=== PATIENT | female | born 1950 | race Caucasian/White ===

== ENCOUNTER → 2024-03-11 | Outpatient (CLI) | payer OTHER ==
[2024-03-11 13:20] LABS: Basophils # (auto) 0.1 10 ^3/uL (0-0.2); Basophils % (auto) 0.8 % (0.0-2.0); Eosinophils # (auto) 0.1 10 ^3/uL (0-0.8); Eosinophils % (auto) 1.3 % (0.0-7.0); Hematocrit 42.5 % (36.0-46.0); Hemoglobin 14.5 g/dL (12.2-16.2); Lymphocytes % (auto) 27.5 % (10.0-50.0); Mean Corpuscular Hemoglobin 29.8 pg (28.0-32.0); Mean Corpuscular Hgb Conc. 34.2 g/dL (32.0-36.0); Mean Corpuscular Volume 87.4 fL (80.0-100.0); Monocytes # (auto) 0.8 10 ^3/uL (0-1.3); Monocytes % (auto) 7.2 % (0.0-12.0); Neutrophils # (auto) 6.9 10 ^3/uL (1.6-8.6); Neutrophils % (auto) 63.2 % (37.0-80.0); Nucleated Red Blood Cells % 0.1 %; Red Blood Cells 4.86 10^6/uL (4.0-5.20); Red Cell Distribution Width 14.6 % (11.8-14.3); White Blood Cell 10.9 10^3/uL (4.4-10.8)
[2024-03-11 14:09] LABS: Alanine Aminotransferase 14 U/L (7-40); Alkaline Phosphatase 65 U/L (46-116); Anion Gap 5 (5-15); Aspartate Aminotransferase 8 U/L (13-40); BUN/Creatinine Ratio 21.8 (10.0-20.0); Blood Urea Nitrogen 19 mg/dL (9-23); Calcium 9.5 mg/dL (8.7-10.4); Carbon Dioxide 28 mmol/L (20-30); Chloride 108 mmol/L (98-107); Glucose 146 mg/dL (74-106); LDL Cholesterol 65 mg/dL (< 100); Sodium 141 mmol/L (136-145); Triglycerides 105 mg/dL (< 150)
[2024-03-11 14:10] LABS: Albumin 4.4 g/dL (3.2-4.8); Bilirubin, Total 0.4 mg/dL (0.2-1.0); Cholesterol 117 mg/dL (< 200); HDL Cholesterol 36 mg/dL (40-59); Total Protein 6.6 g/dL (5.7-8.2)
[2024-03-11 14:31] LABS: Uric Acid 3.8 mg/dL (3.1-7.8)
[2024-03-11 14:55] LABS: Folate (Folic Acid) 10.58 ng/mL (>5.38)
== END | disposition home or self-care (01) ==
LOC: LAB 12:46
PROVIDERS: ATTEND Internal Medicine
DX: R73.09 Other abnormal glucose (principal); E61.2 Magnesium deficiency; R79.89 Other specified abnormal findings of blood chemistry
CPT/HCPCS: 36415; 80053; 80061; 82306; 82607; 82746; 83036; 84443; 84550; 85025

== ENCOUNTER 2024-12-12 14:06 | Inpatient (IN) | payer OTHER ==
[~2024-12-12] VITALS: Ht 160 cm; Wt 55.7 kg
[~2024-12-12 14:06] MED LIST: CEFP200T15 PO
--- NOTE | 2024-12-12 14:31 | ED.PDOC ---
Altered Mental Status HPI Comments 74 y.o female with PMHx of dementia, Alzheimer's, HTN, DM, and CVA, presents to the ED via EMS for an evaluation of altered mental status associated with generalized weakness. Per EMS, family on scene noted patient more altered than her normal baseline today around 1000am and reported no appetite the past 3 days with the weakness. Patient is a poor historian upon ED arrival, is able to state her name and where she is but nothing else. No family at bedside to gather more information at this time. Chief Complaint: ALOC Time Seen by MD: 14:25 Primary Care Provider: MESERET Reviewed Notes: Nurses Notes, Cork Wirer Notes, Medications, Allergies Allergies: Coded Allergies: Aspirin (Verified Allergy, Unknown, 01/28/23) Home Meds Active Scripts Cefpodoxime Proxetil (Cefpodoxime Proxetil) 200 Mg Tab, 1 TAB PO BID for 5 Days, #10 TAB Prov:JANELLE PISANO RESIDENT 11/17/24 Information Source: Emergency Med Personnel Mode of Arrival: EMS Severity: Unable to Care for Self Timing: Hours Duration: Since onset Quality: Decreased Alertness Associated Signs and Symptoms: Other Past Medical History PAST MEDICAL HISTORY: Alzheimer, CVA, Dementia, DM, HTN Surgical History: Denies all surgeries REC THERAPIST History: No Pertinent REC THERAPIST History Family History Family History: Reviewed,noncontributory to illness Social History Smoker: Non-Smoker Alcohol: Denies ETOH Use Drugs: Marijuana Lives In: Home Physical Exam General Appearance: Moderate Distress HEENT: Normal ENT Inspection, Pharynx Normal, TMs Normal Neck: Full Range of Motion, Non-Tender, Normal, Normal Inspection Respiratory: Chest Non-Tender, Lungs Clear, No Accessory Muscle Use, No Respiratory Distress, Normal Breath Sounds Cardiovascular: No Edema, No JVD, No Murmur, No Gallop, Normal Peripheral Pulses, Regular Rate/Rhythm Breast Exam: Deferred Gastrointestinal: No Organomegaly, Non Tender, No Pulsatile Mass, Normal Bowel Sounds, Soft Genitalia: Deferred Pelvic: Deferred Rectal: Deferred Extremities: No calf tenderness, No pedal edema Musculoskeletal : Apperance: Normal Neurologic: Alert, No Motor Deficits, No Sensory Deficits Cerebellar Function: NOT DONE Reflexes: NOT DONE Skin: Dry, Normal Color, Warm Peripheral Pulses: 3+ Radial (R), 3+ Radial (L) Lymphatic: No Adenopathy Was a procedure done? Was a procedure done?: No Differential Diagnosis (ALOC) Differential Diagnosis: Dehydration, Hypoxemia, Closed Head Injury, Heart Nico lure, Renal Failure X-Ray, Labs, Meds, VS Vital Signs Date Time Temp Pulse Resp B/P (MAP) Pulse Ox O2 Delivery O2 Flow Rate FiO2 12/12/24 16:11 98.3 66 66 103/53 (70) 93 98.3 12/12/24 16:11 66 16 93 Nasal Cannula* 2 28 12/12/24 15:51 98.2 58 22 81/39 (53) 91 98.2 12/12/24 14:13 69 12/12/24 14:06 98.3 65 21 113/50 (71) 92 98.3 Patient alert. Answering questions. CT of the head reviewed does show ischemia possibly old. Spoke with Radiology. Monitor with possible further imaging. Neurology consultation. She is mentating. Old stroke. Reviewed her previous visit. Waiting for family. Continue monitoring. Sign out to night physician. Continue to monitor with CT scan. Time of 1ST Reevaluation: 14:28 Reevaluation 1ST: Unchanged Patient Education/Counseling: Other (patient is altered ) Family Education/Counseling: No Family Present Departure 1 Departure Time of Disposition: 16:08 Impression: Primary Impression: CVA (cerebral vascular accident) Qualified Codes: I63.9 - Cerebral infarction, unspecified Disposition: 30 STILL A PATIENT Condition: Good Critical Care Note Critical Care Time?: Yes (90 min-critical care time only) Critical care comment: Continue to monitor Stability Stability form required: No I personally scribed for PAULA STILES MD ([email or web address]) on 12/12/24 at 14:31. Electronically submitted by Kiana Morales ([facility]). PAULA STILES MD Dec 12, 2024 14:31
--- NOTE | 2024-12-12 15:31 | DVH ---
CT HEAD WITHOUT CONTRAST INDICATION: altered : 74 old Female altered EXAM DATE: 12/12/2024 02:49 PM COMPARISON: None RADIATION DOSE: CTDIvol: 51 mGy, DLP: 1006 mGy*cm PROCEDURE: CT scans of the head were obtained from the vertex to the skull base. Sagittal and coronal reconstructions were provided. All CT scans at this medical facility are performed using dose modulation techniques as appropriate t o a performed exam including the following: Automated exposure control was utilized; adjustment of th e MA and/or KV according to patient size; and use of iterative reconstruction technique. FINDINGS: Right MCA distribution areas of encephalomalacia likely from infarct with serpinginous dens ities over the sulci, is probably hemosiderin staining however hemorrhagic transformation is a possib ility. There is sulcal and ventricular prominence. The brain otherwise shows normal morphology and g ray-white matter differentiation, without mass effect .The basal cisterns are patent. The skull and visible facial bones are intact. The paranasal sinuses, mastoid air cells and middle ear cavities are well-aerated. The soft tissues of the scalp are unremarkable. IMPRESSION: Right MCA distribution areas of encephalomalacia likely from infarct with serpinginous densities over the sulci, is probably hemosiderin staining however hemorrhagic transformation is a possibility. Critical Result: Infarct , questionable bleed Findings discussed with Dr. Bennett at 12/12/2024 03:28 PM and acknowledged receipt and understanding of the findings.
[2024-12-12 16:11] VITALS: PULSE 66; RESP 16; O2SAT 93
--- NOTE | 2024-12-12 17:35 | DVH ---
EXAM: CT HEAD WITHOUT CONTRAST INDICATION: fall, trauma, pain TECHNIQUE: CT of the head without intravenous contrast. Radiation Dose : 1. Head: CT Dose: CTDI volume is 52.29 mGy. Dose-length product is 926.08 mGy*cm The dose indicators for CT are the volume Computed Tomography (CT) Dose Index (CTDIvol) and the Dose Length Product (DLP), and are measured in units of mGy and mGy-cm, respectively. These indicators are not patient dose, but values generated from the CT scanner acquisition factors. The report includes radiation exposure data for exposures received during this examination. COMPARISON: CT HEAD WITHOUT CONTRAST on DOS: 12/12/24 FINDINGS: Redemonstration of encephalomalacia along the right MCA distribution with serpiginous cortical hyperd ensities likely representing gliosis or hemosiderin stain from chronic infarct. The ventricles, sulci and cisterns are age appropriate. The jenkins-white differentiation is intact. Patchy periventricular and subcortical white matter hypoattenuation is nonspecific but may be related to small vessel ischemic disease. The visualized paranasal sinuses and mastoid air cells are clear. The surrounding soft tissues and osseous structures are unremarkable. IMPRESSION: No acute intracranial abnormality. Findings are unchanged from CT dated 12/12/2024 at 2:49 p.m. Findings are therefore likely representa tive of chronic right MCA distribution infarct/ encephalomalacia with gliosis and/or chronic hemoside rin staining. Radiation optimization: All CT scans at this facility use at least one of these dose optimization christopher hniques: automated exposure control mA and/or kV adjustment per patient size (includes targeted exam s where dose is matched to clinical indication) or iterative reconstruction.
[2024-12-12 18:15] VITALS: PULSE 88; RESP 16; O2SAT 94
[2024-12-12 19:30] VITALS: PULSE 71; RESP 16; O2SAT 95
[2024-12-12 21:07] LABS: Basophils # (auto) 0.1 10 ^3/uL (0-0.2); Eosinophils # (auto) 0.1 10 ^3/uL (0-0.8)
[2024-12-12 21:09] LABS: Basophils % (auto) 0.6 % (0.0-2.0); Eosinophils % (auto) 0.9 % (0.0-7.0); Hematocrit 35.7 % (36.0-46.0); Hemoglobin 12.3 g/dL (12.2-16.2); Lymphocytes # (auto) 2.4 10 ^3/uL (0.4-5.4); Lymphocytes % (auto) 18.1 % (10.0-50.0); Mean Corpuscular Hgb Conc. 34.3 g/dL (32.0-36.0); Mean Corpuscular Volume 87.6 fL (80.0-100.0); Monocytes # (auto) 1.4 10 ^3/uL (0-1.3); Monocytes % (auto) 10.7 % (0.0-12.0); Neutrophils # (auto) 9.2 10 ^3/uL (1.6-8.6); Neutrophils % (auto) 69.7 % (37.0-80.0); Nucleated Red Blood Cells % 0.1 %; Platelet Count (auto) 538 10^3/uL (140-450); Red Blood Cells 4.08 10^6/uL (4.0-5.20); Red Cell Distribution Width 14.1 % (11.8-14.3); White Blood Cell 13.3 10^3/uL (4.4-10.8)
[2024-12-12 21:17] LABS: Chloride 103 mmol/L (98-107); Sodium 136 mmol/L (136-145)
[2024-12-12 21:18] LABS: Anion Gap 9 (5-15); Calcium 9.6 mg/dL (8.7-10.4); Carbon Dioxide 24 mmol/L (20-31)
[2024-12-12 21:23] LABS: BUN/Creatinine Ratio 31.7 (10.0-20.0)
[2024-12-12 21:24] LABS: Blood Urea Nitrogen 26 mg/dL (9-23); Glucose 133 mg/dL (74-106)
--- NOTE | 2024-12-12 21:39 | DVH ---
EXAM: XY CHEST PORTABLE TECHNIQUE: Single frontal chest radiograph CLINICAL HISTORY: ams COMPARISON: XY CHEST XRAY 1 VIEW on DOS: 11/15/24 Findings/Impression: Frontal chest radiograph demonstrates no acute osseous or superficial soft tissue abnormalities. The trachea is midline. The cardiac silhouette and mediastinum are within normal limits. Left basilar atelectasis versus developing infection. No pneumothorax or pleural effusions.
--- NOTE | 2024-12-13 01:34 | DVHHPRES ---
History of Present Illness Resident Creating Document: JOSÉ MANUEL KAUR RESIDENT History of Present Illness Patient is a 74-year-old female with past medical history of Alzheimer's dementia, diabetes, CAD s/p PCI in 2003, hypertension, CVA on 11/21/2024 who comes in due to increasing confusion. Patient is a poor historian and AO x1 at baseline. At the time of my assessment patient is AO x2. According to patient's family she has been having increasing confusion over the last few days along with decreasing oral intake headaches and polydipsia which is what prompted this visit to the hospital. On review of systems, patient denies everything, however, patient is a poor historian. CT head showed Right MCA distribution areas of encephalomalacia likely from infarct with serpinginous densities over the sulci, is probably hemosiderin staining however hemorrhagic transformation is a possibility. Repeat head CT showed redemonstration of encephalomalacia along right MCA with cortical hyperdensities concerning for gliosis versus hemosiderin staining from chronic infarct. CXR showed left basilar atelectasis versus developing infection. On physical exam patient had extensive bilateral wheezing along with decreased strength in the left upper and lower extremities. Past Medical History Alzheimer's dementia, diabetes, CAD s/p PCI in 2003, hypertension, CVA on 11/21/2024 Past Surgical History PCI, hysterectomy Past Social History Unable to obtain Review of Systems Review of Systems Unable to obtain accurate review of systems. Allergies: Coded Allergies: Aspirin (Verified Allergy, Unknown, 01/28/23) Exam Vital Signs Vital Signs Date Time Temp Pulse Resp B/P (MAP) Pulse Ox O2 Delivery O2 Flow Rate FiO2 12/12/24 19:30 98.1 71 16 117/47 (70) 95 98.1 12/12/24 19:30 Nasal Cannula* 2 28 General Appearance: Alert, Cooperative, mild distress (AO x2) HEENT: Atraumatic, PERRLA, Other (Dry mucous membranes) Respiratory: Other (Scattered bilateral wheezes) Cardiovascular: Regular rate, Normal S1, Normal S2 Abdominal: Normal bowel sounds, Soft, No tenderness Extremities: Normal pulses, No tenderness/swelling, Other Neuro: Normal speech, Other (Decreased strength in the left upper and lower extremities) Psych/Mental Status: Mood NL Labs/Xrays Labs Test 12/12/24 23:39 12/12/24 20:45 Range/Units Troponin I High Sensitivity 7 </=34 ng/L White Blood Count 13.3 H 4.4-10.8 10^3/uL Red Blood Count 4.08 4.0-5.20 10^6/uL Hemoglobin 12.3 12.2-16.2 g/dL Hematocrit 35.7 L 36.0-46.0 % Mean Corpuscular Volume 87.6 80.0-100.0 fL Mean Corpuscular Hemoglobin 30.0 28.0-32.0 pg Mean Corpuscular Hemoglobin Concent 34.3 32.0-36.0 g/dL Red Cell Distribution Width 14.1 11.8-14.3 % Platelet Count 538 H 140-450 10^3/uL Mean Platelet Volume 7.6 6.9-10.8 fL Neutrophils (%) (Auto) 69.7 37.0-80.0 % Lymphocytes (%) (Auto) 18.1 10.0-50.0 % Monocytes (%) (Auto) 10.7 0.0-12.0 % Eosinophils (%) (Auto) 0.9 0.0-7.0 % Basophils (%) (Auto) 0.6 0.0-2.0 % Neutrophils # (Auto) 9.2 H 1.6-8.6 10 ^3/uL Lymphocytes # (Auto) 2.4 0.4-5.4 10 ^3/uL Monocytes # (Auto) 1.4 H 0-1.3 10 ^3/uL Eosinophils # (Auto) 0.1 0-0.8 10 ^3/uL Basophils # (Auto) 0.1 0-0.2 10 ^3/uL Nucleated Red Blood Cells 0.1 % Sodium Level 136 136-145 mmol/L Potassium Level 4.0 3.5-5.1 mmol/L Chloride Level 103 98-107 mmol/L Carbon Dioxide Level 24 20-31 mmol/L Anion Gap 9 5-15 Blood Urea Nitrogen 26 H 9-23 mg/dL Creatinine 0.82 0.550-1.02 mg/dL Glomerular Filtration Rate Calc 76 >90 mL/min BUN/Creatinine Ratio 31.7 H 10.0-20.0 Serum Glucose 133 H 74-106 mg/dL Calcium Level 9.6 8.7-10.4 mg/dL Assessment/Plan Assessment/Plan Community-acquired pneumonia, Gram-positive versus Gram-negative Acute hypoxic respiratory failure due to above Sepsis due to above Acute metabolic encephalopathy due to above - IV ceftriaxone, IV azithromycin - sputum induction with sputum culture - serum lactic acid within normal limits - ordered blood culture - IV NS 500 cc once, ordered another bolus of IV NS 250 cc - ordered UA, urine culture Alzheimer's dementia, currently AO x2 - monitor Type 2 diabetes Hypertension CAD s/p PCI in 2003 History of CVA on 11/21/2024 - resumed home medication lisinopril 40 mg - sliding scale insulin mild - resumed home medication atorvastatin and clopidogrel - patient allergic to aspirin - pureed diet - swallow evaluation - ordered echocardiogram as patient noted to have crackles with no prior echocardiogram Left talus ulcer, POA Sacral erythema, POA - wound consult - dietary consult DVT prophylaxis: Levonox 40mg Goals of care: Full code, unable to reach patient's family Plan discussed with patient Plan discussed with Dr. Le Plan discussed with: Patient, Other (RN) Date of Service: Dec 13, 2024 Billing Provider: ALYSON LE MD Common Visit Codes: 44276-[id number] INP/OBS CARE (HIGH) Secondary Visit Codes: [id number] CARE PLAN 30 MINUTES JOSÉ MANUEL KAUR RESIDENT Dec 13, 2024 01:34 ALYSON LE MD Dec 13, 2024 21:16
[2024-12-13] MEDS: cefTRIAXone 1GM/50ML D5W 50 ML IV ONE (02:06)
[2024-12-13] MEDS: SODIUM CHLORIDE 0.9% 500 ML IV ONE (02:19)
[2024-12-13] MEDS: AZITHROMYCIN 500MG/ 250ML 250 ML IV ONE (02:51)
[2024-12-13] MEDS ORDERED: DEXTROSE (50%) 50ML SYRG IV PRN (04:45)
[2024-12-13] MEDS: CLOPIDOGREL BISULFATE 75 MG TAB PO SCH (05:33)
[2024-12-13] MEDS: LISINOPRIL 20 MG TAB PO SCH (05:34)
[2024-12-13 06:13] LABS: Urine Bacteria None Seen /hpf (None Seen)
[2024-12-13 06:31] LABS: Urine Blood Negative /uL (Negative); Urine Clarity Clear (Clear); Urine Color Yellow (Yellow); Urine Hyaline Cast FEW /lpf (0 - 2); Urine Protein, UAD TRACE (Negative); Urine Specific Gravity 1.029 (1.001-1.035); Urine Squamous Epithelial Cell None Seen /hpf (<5); Urine Urobilinogen 2 mg/dL (Negative); Urine WBC 1 /HPF (0-5); Urine pH 5.5 (5.0-9.0)
[2024-12-13] MEDS: InsuLIN REG 1unit/0.01ml Soln (100units/ml) SC SCH (06:34)
[2024-12-13] MEDS: ACCU-CHEK COMFORT CURVE STRIP VI SCH (06:34)
[2024-12-13 07:03] LABS: Anion Gap 10 (5-15); Calcium 9.5 mg/dL (8.7-10.4); Carbon Dioxide 24 mmol/L (20-31); Chloride 102 mmol/L (98-107); Potassium 3.8 mmol/L (3.5-5.1); Sodium 136 mmol/L (136-145)
[2024-12-13 07:09] LABS: BUN/Creatinine Ratio 34.3 (10.0-20.0)
[2024-12-13 07:10] LABS: Basophils # (auto) 0.1 10 ^3/uL (0-0.2); Basophils % (auto) 0.3 % (0.0-2.0); Eosinophils # (auto) 0.2 10 ^3/uL (0-0.8); Hemoglobin 12.1 g/dL (12.2-16.2); Lymphocytes # (auto) 1.9 10 ^3/uL (0.4-5.4); Lymphocytes % (auto) 12.1 % (10.0-50.0); Mean Corpuscular Hemoglobin 30.1 pg (28.0-32.0); Mean Corpuscular Hgb Conc. 33.7 g/dL (32.0-36.0); Mean Corpuscular Volume 89.3 fL (80.0-100.0); Monocytes # (auto) 1.6 10 ^3/uL (0-1.3); Monocytes % (auto) 10.1 % (0.0-12.0); Neutrophils % (auto) 76.5 % (37.0-80.0); Nucleated Red Blood Cells % 0.1 %; Platelet Count (auto) 566 10^3/uL (140-450); Red Blood Cells 4.03 10^6/uL (4.0-5.20); Red Cell Distribution Width 13.9 % (11.8-14.3); White Blood Cell 15.7 10^3/uL (4.4-10.8)
[2024-12-13 07:11] LABS: Blood Urea Nitrogen 23 mg/dL (9-23); Glucose 127 mg/dL (74-106)
--- NOTE | 2024-12-13 09:42 | DVHINCON2 ---
Date of service: Dec 13, [address] Bennett Reason for Consultation CVA History of Present Illness Ms. Sims is a 74 years old lady with a history of hypertension, diabetes, recent stroke with left-sided deficits, dementia, she was brought to the [facility] on 12/12/24 with a chief company of altered mental status with general weakness. At this time, she was awake, oriented to person only, but with reasonable social skills, and she is able to tell her nurse what she wants She has a history of dementia/Alzheimer disease, and the see her in my office, and she was on Aricept 10 mg daily, memantine 10 mg b.i.d., Remeron 45 mg at b edtime as needed, trazodone 150 mg to 200 mg at bedtime as needed She was recently discharged from the [facility] for acute stroke with resultant left hemiparesis Urinalysis, 12/13/2024: WBC: 1, urine leukocyte esterase: Negative WBC/HB/PLT/MCV, 12/13/2024: 15.7/12.1/566/89.3 BMP, 12/13/2024: Unremarkable TG/HDL/LDL/HDL, 07/2024: 190/200/139/44 VITAMIN B12, 10/2024: 1408 Chest x-ray, : Frontal chest radiograph demonstrates no acute osseous or superficial soft tissue abnormalities. The trachea is midline. The cardiac silhouette and mediastinum are within normal limits. Left basilar atelectasis versus developing infection. No pneumothorax or pleural effusions. CT head, 12/12/2024: No acute intracranial abnormality (right MCA encephalomalacia) Past Medical History Hypertension, diabetes, stroke, Alzheimer disease Past Surgical History C-sections, hysterectomy Family History: FH: brain cancer G8 FATHER Hypertension G8 MOTHER Ischemic heart disease G8 MOTHER Family History Migraine headache, HYPERTENSION, HEART DISEASE, anxiety Social History Smoker: Non-Smoker Alcohol: Denies ETOH Use Drugs: Marijuana Lives In: Home Allergies: Coded Allergies: Aspirin (Verified Allergy, Unknown, 01/28/23) Home Meds Active Scripts Cefpodoxime Proxetil (Cefpodoxime Proxetil) 200 Mg Tab, 1 TAB PO BID for 5 Days, #10 TAB Prov:JANELLE PISANO RESIDENT 11/17/24 Current Medications Current Medications Medications (Trade) Dose Ordered Sig/Tash Route PRN Reason Start Time Stop Time Status Last Admin Enoxaparin Sodium (Lovenox) 40 mg DAILY SC 12/13/24 10:00 Ceftriaxone Sodium 50 ml @ 100 mls/hr DAILY@09 IV 12/13/24 09:00 Azithromycin 250 ml @ 125 mls/hr DAILY IV 12/13/24 10:00 Lisinopril (Zestril Tablet) 40 mg DAILY PO 12/13/24 04:30 12/13/24 05:34 Atorvastatin Calcium (Lipitor) 40 mg HS PO 12/13/24 22:00 Clopidogrel Bisulfate (Plavix) 75 mg DAILY PO 12/13/24 04:45 12/13/24 05:33 Diagnostic Test (Pha) (Accu-Chek Comfort Curve T) 1 strip ACHS 12/13/24 07:00 12/13/24 06:34 Insulin Human Regular (InsuLIN R) ACHS SC 12/13/24 07:00 Dextrose 50 ml UD PRN IV Blood Sugar LESS THAN 60 12/13/24 04:45 Review of Systems As above, the other systems are negative Vital Signs Vital Signs Date Time Temp Pulse Resp B/P (MAP) Pulse Ox O2 Delivery O2 Flow Rate FiO2 12/13/24 08:00 80 12/13/24 06:00 20 156/71 (99) 100 12/12/24 19:30 98.1 98.1 12/12/24 19:30 Nasal Cannula* 2 28 Physical Exam GENERAL EXAM: General: the patient is well developed and nourished. No acute distress. HEENT: Normocephalic, neck is supple, no carotid bruits. No mass. RESPIRATORY: Normal respiratory effort with symmetrical lung expansion. Lungs clear to auscultation. CARDIOVASCULAR: Regular rate and rhythm with no murmurs. S1, S2. ABDOMEN: Soft, nontender, normal bowel sound NEUROLOGICAL: MENTAL STATUS: Awake and alert. Oriented to perso SPEECH, LANGUAGE, HIGHER CORTICAL FUNCTION: no aphasia or dysathria. CRANIAL NERVES: #2: Left homonymous hemianopsia. The optic discs were sharp. #3,4,6: Pupils are equal, round and reactive. EOMs full and conjugate. #5: Facial sensation intact in all three divisions bilaterally. Mandibular strength intact. #7: Facial muscles symmetrical and strength intact. #8: Hearing grossly normal to voice. #9,10: Uvula and soft palate rise in the midline. Swallow and voice are normal. #11: Trapezius and sternomastoid strength intact bilaterally. #12: Tongue midline. No fasciculations or atrophy. SENSATION: Sensation to touch and pinprick is fine MOTOR: Normal tone in the upper and lower extremity. Normal muscle bulk. No fasciculations. No abnormal movements or posturing. Muscle strength of the major groups in the right extremities is 5/5. Muscle strength of the major groups in the right extremities is: Upper: 0/5, lower: 3/5. REFLEXES: Deep tendon reflexes are symmetrical. No pathological reflexes. CEREBELLAR/COORDINATION: Deferred. GAIT/STATION: deferred. Labs/Diagnostic Data Labs Test 12/13/24 06:20 12/13/24 06:05 12/13/24 06:01 12/13/24 01:50 Range/Units White Blood Count 15.7 H 4.4-10.8 10^3/uL Red Blood Count 4.03 4.0-5.20 10^6/uL Hemoglobin 12.1 L 12.2-16.2 g/dL Hematocrit 36.0 36.0-46.0 % Mean Corpuscular Volume 89.3 80.0-100.0 fL Mean Corpuscular Hemoglobin 30.1 28.0-32.0 pg Mean Corpuscular Hemoglobin Concent 33.7 32.0-36.0 g/dL Red Cell Distribution Width 13.9 11.8-14.3 % Platelet Count 566 H 140-450 10^3/uL Mean Platelet Volume 7.6 6.9-10.8 fL Neutrophils (%) (Auto) 76.5 37.0-80.0 % Lymphocytes (%) (Auto) 12.1 10.0-50.0 % Monocytes (%) (Auto) 10.1 0.0-12.0 % Eosinophils (%) (Auto) 1.0 0.0-7.0 % Basophils (%) (Auto) 0.3 0.0-2.0 % Neutrophils # (Auto) 12.0 H 1.6-8.6 10 ^3/uL Lymphocytes # (Auto) 1.9 0.4-5.4 10 ^3/uL Monocytes # (Auto) 1.6 H 0-1.3 10 ^3/uL Eosinophils # (Auto) 0.2 0-0.8 10 ^3/uL Basophils # (Auto) 0.1 0-0.2 10 ^3/uL Nucleated Red Blood Cells 0.1 % Sodium Level 136 136-145 mmol/L Potassium Level 3.8 3.5-5.1 mmol/L Chloride Level 102 98-107 mmol/L Carbon Dioxide Level 24 20-31 mmol/L Anion Gap 10 5-15 Blood Urea Nitrogen 23 9-23 mg/dL Creatinine 0.67 0.550-1.02 mg/dL Glomerular Filtration Rate Calc 93 >90 mL/min BUN/Creatinine Ratio 34.3 H 10.0-20.0 Serum Glucose 127 H 74-106 mg/dL Calcium Level 9.5 8.7-10.4 mg/dL POC Glucose 126 H 70-106 mg/dl Urine Color Yellow Yellow Urine Clarity Clear Clear Urine pH 5.5 5.0-9.0 Urine Specific [place] 1.029 1.001-1.035 Urine Protein Trace H Negative Urine Ketones Trace Negative Urine Blood Negative Negative /uL Urine Nitrite Negative Negative Urine Bilirubin Negative Negative Urine Urobilinogen 2 H Negative mg/dL Urine Leukocyte Esterase Negative Negative /uL Urine RBC <1 0 - 4 /hpf Urine Microscopic WBC 1 0-5 /HPF Urine Squamous Epithelial Cells None seen <5 /hpf Urine Bacteria None seen None Seen /hpf Urine Hyaline Casts Few 0 - 2 /lpf Urine Glucose Normal Normal mg/dL Lactic Acid Level 0.9 0.4-2.0 mmol/L Test 12/12/24 23:39 Range/Units Troponin I High Sensitivity 7 </=34 ng/L Assessment Altered mental status/metabolic encephalopathy, likely recovered Rule out acute stroke Resident Stroke with left hemiparesis Dementia/Alzheimer disease Plan/Recommendation Monitoring Supportive treatment Telemetry Lipitor profile MRI head Plavix 75 mg daily Lipitor 40 mg daily Aricept 10 mg daily Memantine 10 mg b.i.d. More recommendation per clinical course Plan discussed with: Other DAVID CAMPBELL MD Dec 13, 2024 09:42
[2024-12-13] MEDS: ENOXAPARIN SOD 40 MG/0.4 ML SYRINGE SC SCH (10:53)
[2024-12-13] MEDS: amLODIPine BESYLATE 5 MG TAB PO SCH (10:53)
[2024-12-13] MEDS: cefTRIAXone 1GM/50ML D5W 50 ML IV SCH (10:53)
[2024-12-13] MEDS ORDERED: LORazepam 2MG/ML-1ML VIAL IV PRN (11:00)
[2024-12-13 11:46] LABS: Triglycerides 101 mg/dL (< 150)
[2024-12-13 11:47] LABS: LDL Cholesterol 52 mg/dL (< 100)
[2024-12-13 11:48] LABS: Cholesterol 105 mg/dL (< 200)
[2024-12-13 11:51] LABS: HDL Cholesterol 27 mg/dL (40-59)
--- NOTE | 2024-12-13 12:27 | ECG ---
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
[2024-12-13] MEDS: AZITHROMYCIN 500MG/ 250ML 250 ML IV SCH (12:34)
--- NOTE | 2024-12-13 13:18 | DVHSR ---
APPROVED REPORT EXAM: Two-dimensional and M-mode echocardiogram with Doppler and color Doppler. Blood Pressure: 156/71 mmHg INDICATION SOB RISK FACTORS Height: 58, Weight: 92 DIMENSIONS LVDd3.9 (3.8-5.7cm)LA (2D)3.7 (1.9-4.0cm)Aortic Root3.1 (2.0-3.7cm) LVDs2.8 (2.5-4.0cm)LA (MM) (1.9-4.0cm)Aortic Cusp Exc1.5 (1.5-2.0cm) EF (%) 56.0 (55-70%)Rt. Atrium3.5 (1.9-4.0cm)Asc. Aorta cm IVSd0.8 (0.7-1.1cm)RV (D) (1.8-2.4cm) PWd1.1 (0.7-1.1cm) Mitral Valve MitralMitral Stenosis E wave0.75m/sMV Mean GR.mmHg A wave0.92m/sMV Peak GR.61mmHg E/A ratio0.82D MVAcm2 DECEL [id number] 1/2 [id number] IVRTmsDop MVA4.78cm2 Aortic Valve Aortic ValveAortic Stenosis V11.53m/Brianne Mean GR.5mmHg V21.73m/Brianne Peak GR.12mmHg LVOT Diameter1.8 (1.8-2.4cm)Doppler AVA2.25cm2 Pulmonic Valve V21.06m/s Tricuspid Valve TR Velocity1.95m/s [id number] Other Information Technically limited study due to Conclusion lv and rv normal function lvef 55-60%, mild diastolic dysfunction
--- NOTE | 2024-12-13 13:52 | DVHPNRES ---
Progress Note Date Seen: Dec 13, 2024 Resident Creating Document: BRO ALLEN RESIDENT Medical Necessity Reason Pt with a Central, PICC or Fol: No Subjective Review of Systems Patient is a 74-year-old female with past medical history of Alzheimer's dementia, diabetes, CAD s/p PCI in 2003, hypertension, CVA on 11/21/2024 who comes in due to increasing confusion. Patient is a poor historian and AO x1 at baseline. At the time of my assessment patient is AO x2. According to patient's family she has been having increasing confusion over the last few days along with decreasing oral intake headaches and polydipsia which is what prompted this visit to the hospital. CT head showed Right MCA distribution areas of encephalomalacia likely from infarct with serpinginous densities over the sulci, is probably hemosiderin staining however hemorrhagic transformation is a possibility. Repeat head CT showed redemonstration of encephalomalacia along right MCA with cortical hyperdensities concerning for gliosis versus hemosiderin staining from chronic infarct. CXR showed left basilar atelectasis versus developing infection. On physical exam patient had extensive bilateral wheezing along with decreased strength in the left upper and lower extremities. Patient was seen and examined on the bedside. She is alert oriented x1. Review of system could not be assessed as patient is not fully alert and oriented Objective vital signs Vital Sign Date Time Temp Pulse Resp B/P (MAP) Pulse Ox O2 Delivery O2 Flow Rate FiO2 12/13/24 12:00 77 12/13/24 11:00 22 137/44 (75) 93 12/13/24 08:00 Nasal Cannula* 2 28 12/13/24 08:00 97.9 97.9 Total Intake and Output 12/12/24 12/12/24 12/13/24 15:00 23:00 07:00 Intake Total 800 ml Balance 800 ml medications Current Medications Medications Dose Ordered Sig/Tash Route Start Time Stop Time Status Last Admin Dose Admin Enoxaparin Sodium 40 mg DAILY SC 12/13/24 10:00 12/13/24 10:53 40 MG Ceftriaxone Sodium 50 ml @ 100 mls/hr DAILY@09 IV 12/13/24 09:00 12/13/24 10:53 100 MLS/HR Azithromycin 250 ml @ 125 mls/hr DAILY IV 12/13/24 10:00 12/13/24 12:34 125 MLS/HR Lisinopril 40 mg DAILY PO 12/13/24 04:30 12/13/24 05:34 40 MG Atorvastatin Calcium 40 mg HS PO 12/13/24 22:00 Clopidogrel Bisulfate 75 mg DAILY PO 12/13/24 04:45 12/13/24 10:00 75 MG Diagnostic Test (Pha) 1 strip ACHS 12/13/24 07:00 12/13/24 11:30 1 STRIP Insulin Human Regular ACHS SC 12/13/24 07:00 12/13/24 11:18 3 UNITS Dextrose 50 ml UD PRN IV 12/13/24 04:45 Amlodipine Besylate 10 mg DAILY PO 12/13/24 10:00 Lorazepam 1 mg ONCE PRN IV 12/13/24 11:00 Examination Physical examination: General Appearance: Alert, Oriented X1, Cooperative, No acute distress HEENT: Atraumatic, PERRLA, EOMI, Mucous membrane moist/pink Respiratory: Bilateral Wheezing and crackles on the left side Cardiovascular: Regular rate, Normal S1, Normal S2, No murmurs, no chest wall tenderness Abdominal: Normal bowel sounds, Soft, No tenderness, No hepatospenomegaly, No masses Extremities: No clubbing, No cyanosis, No edema, Normal pulses, No tenderness/swelling Skin: No rashes, No breakdown, No significant lesion Neuro: Lt sided residual weakness, Normal speech, Strength at 5/5 X2 ext, Normal tone, Sensation intact, grossy intact cranial nerves. Psych/Mental Status: Could not be assessed as patient has end-stage Alzheimer's dementia. laboratory and microbiology Laboratory Tests 12/13/24 06:20 Test 12/13/24 06:20 Range/Units Serum Glucose 127 H 74-106 mg/dL Labs and/or images reviewed: Labs reviewed by me, Image(s) reviewed by me Problem List/Assessment/Plan Problem List/Assessment/Plan Assessment and plan: # Community-acquired pneumonia, Gram-positive versus Gram-negative # Acute hypoxic respiratory failure due to above # Sepsis due to above - CxR demonstrated left basilar atelectasis versus developing infection - Ordered blood culture and sputum culture - IV ceftriaxone 1 g daily and IV azithromycin 500 mg daily # Acute metabolic encephalopathy, rule out stroke # 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 - Ordered MRI - Neurology on board - Lisinopril 40 mg daily and amlodipine 10 mg daily - Plavix 75 mg daily and atorvastatin 40 mg at HS - Memantine 5 mg b.i.d. and Aricept 10 mg at HS - Echo on 12/13/24 showed 55-60% with mild diastolic dysfunction # Type 2 diabetes mellitus, hemoglobin A1c 7.7 on 11/16/2024 - Mild sliding scale of insulin # DVT prophylaxis - Lovenox 40 mg sc daily Goal of care could not be discussed as patient is not fully alert and oriented but spoke with the daughter over phone for more than 16 minutes full code Plan discussed with Dr. Le Plan discussed with: Patient, Other My Orders My Orders Orders - BRO ALLEN Procedure Category Date Status Time Amlodipine Tablet PHA 12/13/24 In Process (Norvasc Tablet) 10:00 Date of Service: Dec 13, 2024 Billing Provider: ALYSON LE MD Common Visit Codes: [id number] INP/OBS CARE(HIGH) BRO ALLEN Dec 13, 2024 13:52 ALYSON LE MD Dec 13, 2024 21:50
[2024-12-13] MEDS ORDERED: amLODIPine BESYLATE 5 MG TAB PO ONE (14:30)
--- NOTE | 2024-12-13 16:21 | DVH ---
EXAM: MRI BRAIN HEAD WO CONTRAST; DATE: 12/13/2024 03:16 PM HISTORY: xva COMPARISON: Prior CT scans without IV contrast dated 12/12/2024 TECHNIQUE: MRI was performed utilizing multiple appropriate imaging planes and pulse sequences. FINDINGS: SUPRATENTORIAL REGION: Large right MCA territorial infarct restricted diffusion noted. There is sulca l effacement no mass effect on right lateral ventricle. There is no midline shift. Evaluation is ve ry limited due to motion degradation. POSTERIOR FOSSA: No acute abnormality. BRAINSTEM: Unremarkable. SELLAR/SUPRASELLAR REGION: Unremarkable. VENTRICLES, CISTERNS, SULCI: Age-appropriate. ORBITS: Unremarkable. PARANASAL SINUSES: Unremarkable. MASTOID AIR CELLS: Small bilateral mastoid effusions. VASCULATURE: Unremarkable. BONES/ SOFT TISSUES: Unremarkable. OTHER: None. IMPRESSION: 1. Large acute right MCA territorial infarct. There is sulcal effacement but no mass effect on the ri ght lateral ventricle and no midline shift noted. Evaluation is very limited due to motion degradati on. Sulcal calcification / hemosiderin deposit is poorly evaluated due to motion degradation and limi oh sequences in this fast MRI. 2. Small bilateral mastoid effusions. We are in the process of notifying the house staff .
[2024-12-13 20:00] VITALS: PULSE 86; RESP 27; O2SAT 93
[2024-12-13] MEDS: SODIUM CHLORIDE 0.9% 250 ML IV ONE (22:00)
[2024-12-13] MEDS ORDERED: ATORVASTATIN 20 MG TAB PO SCH (22:00)
[2024-12-13] MEDS: MEMANTINE HCL 5 MG TAB PO SCH (22:04)
[2024-12-13] MEDS: ATORVASTATIN 20 MG TAB PO SCH (22:05)
[2024-12-13] MEDS: DONEPEZIL HYDROCHLORIDE 5 MG TAB PO SCH (22:05)
[2024-12-14] VITALS (7 sets, daily range): BP systolic 137–145; BP diastolic 52–58; PULSE 75–88; RESP 14–26; TEMP 98.8–99.5; O2SAT 92–98
[2024-12-14 06:10] LABS: Basophils # (auto) 0.1 10 ^3/uL (0-0.2); Basophils % (auto) 0.6 % (0.0-2.0); Eosinophils # (auto) 0.3 10 ^3/uL (0-0.8); Monocytes % (auto) 10.3 % (0.0-12.0)
[2024-12-14 06:13] LABS: Eosinophils % (auto) 2.4 % (0.0-7.0); Hematocrit 38.2 % (36.0-46.0); Hemoglobin 12.9 g/dL (12.2-16.2); Lymphocytes # (auto) 1.7 10 ^3/uL (0.4-5.4); Lymphocytes % (auto) 14.1 % (10.0-50.0); Mean Corpuscular Hemoglobin 29.7 pg (28.0-32.0); Mean Corpuscular Hgb Conc. 33.6 g/dL (32.0-36.0); Mean Corpuscular Volume 88.3 fL (80.0-100.0); Monocytes # (auto) 1.2 10 ^3/uL (0-1.3); Neutrophils # (auto) 8.8 10 ^3/uL (1.6-8.6); Neutrophils % (auto) 72.6 % (37.0-80.0); Platelet Count (auto) 579 10^3/uL (140-450); Red Blood Cells 4.33 10^6/uL (4.0-5.20); Red Cell Distribution Width 13.8 % (11.8-14.3); White Blood Cell 12.1 10^3/uL (4.4-10.8)
[2024-12-14 06:34] LABS: Anion Gap 11 (5-15); BUN/Creatinine Ratio 21.5 (10.0-20.0); Blood Urea Nitrogen 14 mg/dL (9-23); Calcium 9.3 mg/dL (8.7-10.4); Carbon Dioxide 24 mmol/L (20-31); Chloride 102 mmol/L (98-107); Potassium 3.7 mmol/L (3.5-5.1); Sodium 137 mmol/L (136-145)
[2024-12-14 06:35] LABS: Albumin 3.9 g/dL (3.2-4.8); Total Protein 6.6 g/dL (5.7-8.2)
[2024-12-14 06:36] LABS: Bilirubin, Total 0.5 mg/dL (0.2-1.0)
[2024-12-14 06:43] LABS: Alanine Aminotransferase 142 U/L (7-40); Alkaline Phosphatase 118 U/L (46-116); Aspartate Aminotransferase 169 U/L (13-40); Glucose 171 mg/dL (74-106)
[2024-12-14] MEDS ORDERED: ALBUTEROL SULF 2.5 MG/0.5ML(0.5%) NEB SOLN NEB PRN (07:00)
[2024-12-14] MEDS ORDERED: IPRATROPIUM BROM 0.5 MG/2.5ML INH SOL NEB PRN (07:00)
[2024-12-14 08:37] LABS: INR 1.17 (0.9-1.15); Prothrombin Time 12.2 sec (9.3-11.8)
--- NOTE | 2024-12-14 09:01 | DVH ---
INDICATION: Hepatic steatosis TECHNIQUE: Multiple real-time sonographic images were obtained of the right upper quadrant. COMPARISON: None FINDINGS: The liver demonstrates homogeneous echotexture without focal mass lesions. The liver measu res 14.5 cm. There is no intrahepatic or extrahepatic ductal dilatation. The common duct measures 1.3 cm. Post cholecystectomy The right kidney measures 10.2 cm. The right kidney is normal in contour, size, and shape. The echoge nicity is normal. There is no hydronephrosis. The pancreas is not well visualized due to overlying bowel gas. IMPRESSION: Post cholecystectomy. No acute findings.
--- NOTE | 2024-12-14 09:33 | DVHPN2 ---
Progress Note - Dictate Date Seen: Dec 14, 2024 Medical Necessity Reason Pt with a Central, PICC or Fol: No Subjective Ms. Sims is a 74 years old lady with a history of hypertension, diabetes, recent stroke with left-sided deficits, dementia, she was brought to the [facility] on 12/12/24 with a chief company of altered mental status with general weakness. I have seen and examined the patient, I have discussed with her nurse and the medical staff, the patient was doing fine, she is oriented to person at this time but was oriented to person place earlier this morning I have talked to her daughter, she was relates the patient was 1st sent to the [facility], after "stroke shot", she was transferred to the [facility], and she was discharged home on 12/06/2024 without oxygen. Before she came to the hospital, the patient was was nonresponsive to her and she looked pale at if "she was dying". Daughter noticed improvement once EMS personnel put oxygen on her I have noticed the oxygen down to low 90s in the hospital I have discussed with Dr. Parekh. The patient is going home with home oxygen Urinalysis, 12/13/2024: WBC: 1, urine leukocyte esterase: Negative WBC/HB/PLT/MCV, 12/13/2024: 15.7/12.1/566/89.3 BMP, 12/13/2024: Unremarkable TG/HDL/LDL/HDL, 07/2024: 190/200/139/44 VITAMIN B12, 10/2024: 1408 Chest x-ray, : Frontal chest radiograph demonstrates no acute osseous or superficial soft tissue abnormalities. The trachea is midline. The cardiac silhouette and mediastinum are within normal limits. Left basilar atelectasis versus developing infection. No pneumothorax or pleural effusions. CT head, 12/12/2024: No acute intracranial abnormality (right MCA encephalomalacia) MRI head, 12/13/2024: 1. Large acute right MCA territorial infarct. There is sulcal effacement but no mass effect on the right lateral ventricle and no midline shift noted. Evaluation is very limited due to motion degradation. Sulcal calcification / hemosiderin deposit is poorly evaluated due to motion degradation and limited sequences in this fast MRI. 2. Small bilateral mastoid effusions. (I have reviewed the films, and compared to her CT brain, I think this is the same stroke she sustained recently before she went to the [facility]) vital signs Vital Sign Date Time Temp Pulse Resp B/P (MAP) Pulse Ox O2 Delivery O2 Flow Rate FiO2 12/14/24 08:27 94 Nasal Cannula* 4 36 12/14/24 08:00 74 12/14/24 07:19 99.5 26 145/58 99.5 Total Intake and Output 12/13/24 12/13/24 12/14/24 15:00 23:00 07:00 Intake Total 300 ml Output Total 800 ml Balance 300 ml -800 ml medications Current Medications Medications Dose Ordered Sig/Tash Route Start Time Stop Time Status Last Admin Dose Admin Ceftriaxone Sodium 50 ml @ 100 mls/hr DAILY@09 IV 12/13/24 09:00 12/14/24 08:55 100 MLS/HR Azithromycin 250 ml @ 125 mls/hr DAILY IV 12/13/24 10:00 12/13/24 12:34 125 MLS/HR Lisinopril 40 mg DAILY PO 12/13/24 04:30 12/13/24 13:57 40 MG Atorvastatin Calcium 40 mg HS PO 12/13/24 22:00 12/13/24 22:05 40 MG Clopidogrel Bisulfate 75 mg DAILY PO 12/13/24 04:45 12/13/24 10:00 75 MG Diagnostic Test (Pha) 1 strip ACHS 12/13/24 07:00 12/14/24 06:38 1 STRIP Insulin Human Regular ACHS SC 12/13/24 07:00 12/14/24 06:43 4 UNITS Dextrose 50 ml UD PRN IV 12/13/24 04:45 Amlodipine Besylate 10 mg DAILY PO 12/13/24 10:00 12/13/24 13:57 10 MG Lorazepam 1 mg ONCE PRN IV 12/13/24 11:00 Donepezil HCl 10 mg HS PO 12/13/24 22:00 12/13/24 22:05 10 MG Memantine 5 mg Q12HR PO 12/13/24 22:00 12/13/24 22:04 5 MG Albuterol 2.5 mg Q6HPRN PRN NEB 12/14/24 07:00 Ipratropium [place] 0.5 mg Q6HPRN PRN NEB 12/14/24 07:00 Insulin Glargine 10 units HS SC 12/14/24 22:00 objective General: the patient is well developed and nourished. No acute distress. MENTAL STATUS: Subjective SPEECH, LANGUAGE, HIGHER CORTICAL FUNCTION: no aphasia or dysathria. CRANIAL NERVES: Left homonymous hemianopsia. Pupils are equal, round and reactive. EOMs full and conjugate. Facial sensation intact in all three divisions bilaterally. Mandibular strength intact. Questionable right facial weakness SENSATION: Sensation to touch and pinprick is fine MOTOR: Increased muscle tone in the left arm. Normal muscle bulk. No fasciculations. No abnormal movements or posturing. Muscle strength of the major groups in the right extremities is 5/5. Muscle strength of the major groups in the right extremities is: Upper: 0/5, lower: 3/5. REFLEXES: Deep tendon reflexes are symmetrical. No pathological reflexes. CEREBELLAR/COORDINATION: Deferred. GAIT/STATION: deferred. laboratory and microbiology Laboratory Tests 12/14/24 05:55 Test 12/14/24 05:55 Range/Units Serum Glucose 171 H 74-106 mg/dL Problem List Altered mental status/metabolic encephalopathy, likely recovered Rule out acute stroke Resident Stroke with left hemiparesis Dementia/Alzheimer disease Left upper extremity spasticity Assessment/Plan Monitoring Supportive treatment Telemetry Lipitor profile Plavix 75 mg daily Lipitor 40 mg daily Aricept 10 mg daily Memantine 10 mg b.i.d. More recommendation per clinical course This medical document was created using an electronic medical record system with [employer] dictation system. Although this document has been carefully reviewed, there may still be some phonetic and typographical errors. These areas are purely typographical due to imperfections of the software programs, and do not reflect any compromise in the patient's medical care. Prognosis poor Plan discussed with: Daughter, Other Total Time (mins): 45 DAVID CAMPBELL MD Dec 14, 2024 09:33
[2024-12-14] MEDS ORDERED: amLODIPine BESYLATE 5 MG TAB PO SCH (10:00)
[2024-12-14 10:43] LABS: Base Excess 2.4 mmol/L (-2.0-3.0)
[2024-12-14 10:48] LABS: Hepatitis B Core Total AB Negative (Negative)
[2024-12-14 11:43] LABS: Hepatitis A Total Antibody Positive (Negative)
[2024-12-14 11:44] LABS: Hepatitis B Surface Antibody Negative (Negative); Hepatitis B Surface Antigen Negative (Negative); Hepatitis C Antibody Negative (Negative)
--- NOTE | 2024-12-14 13:09 | DVHINCON2 ---
GI Consult Consult Note GI consult note Date of Consultation: 12/14/2024 Chief Complaint: Peg tube placement Referring Physician: Dr.. Cunningham H&P: 74-year-old female presented to ER with increased confusion. Patient has past medical history of Alzheimer's dementia, diabetes, CAD, hypertension, CVA on 11/21/2024. Also reported to have some difficulty swallowing. Patient is a poor historian. history from chart ,RN and telephone conversation with daughter Pat at [phone] No complains of abdominal pain. No nausea or vomiting, no history of dysphagia. No history of liver problems in the past. Per daughter no history of alcohol use. Patient has a history of long-term use of marijuana Past Medical History: Alzheimer's dementia, diabetes, CAD s/p PCI in 2003, hypertension, CVA on 11/21/2024 Past Surgical History: PCI, hysterectomy Social History: NO smoking, drinking ETOH History of marijuana use Family History: Noncontributory Review of Systems: As above Physical exam: General: Patient is awake in no apparent distress Chest: lung amador clear to auscultation Heart: RRR, no murmur Abdomen: non-distended, no tenderness to palpation, +BS Labs: Test 12/14/24 05:55 Range/Units Serum Glucose 171 H 74-106 mg/dL Imaging: Abdominal ultrasound IMPRESSION: Post cholecystectomy. No acute findings. Assessment: Dysphagia History CVA Sepsis Pneumonia Elevated LFTs Hepatitis A positive Plan: Discussed with Dr. Pandey Monitor LFTs. SOPHIE. Ferritin. Hepatitis a IgM Patient is able to tolerate pureed diet, recommend thickened with nectar No plan for PEG tube at this time Hold hepatotoxic medications We will continue to follow patient Discussed plan with patient and RN and daughter Pat by telephone conversation Thank you for this consult Date of Service: Dec 14, 2024 Billing Provider: ESTELLA COYLE Common Visit Codes: CONSULT ONLY Consultation Codes: [id number] CONSULT <60MIN ESTELLA COYLE Dec 14, 2024 13:09
[2024-12-14 14:35] LABS: Base Excess 3.3 mmol/L (-2.0-3.0)
[2024-12-14] MEDS ORDERED: AML5T PO (16:03)
[2024-12-14] MEDS ORDERED: MEMA1TAB3 PO (16:03)
[2024-12-14] MEDS ORDERED: ATOR20TA50 PO (16:03)
[2024-12-14] MEDS ORDERED: LISI20TA56 PO (16:03)
[2024-12-14] MEDS ORDERED: DONE5TAB80 PO (16:03)
[2024-12-14] MEDS ORDERED: CLOP75TA28 PO (16:03)
[2024-12-14] MEDS ORDERED: DONE1TAB88 PO (16:03)
[2024-12-14] MEDS ORDERED: CLOP75TA70 PO (16:03)
[2024-12-14] MEDS ORDERED: LISI40TA16 PO (16:03)
[2024-12-14] MEDS ORDERED: AMLO1TAB23 PO (16:03)
[2024-12-14] MEDS ORDERED: LEVO750T40 PO (16:03)
--- NOTE | 2024-12-14 19:29 | DVHDSRES ---
Discharge Summary Date of Admission Resident Creating Document: BRO ALLEN RESIDENT Dec 13, 2024 at 01:24 Date of Discharge: Dec 15, 2024 Admitting Diagnosis Community acquired pneumonia gram positive/ gram negative Wounds: No wound was present. Labs/Diagnostic Data: Laboratory Results Test 12/14/24 17:07 12/14/24 14:23 12/14/24 14:13 12/14/24 05:55 POC Glucose 202 mg/dl (70-106) Blood Gas Specimen Type Arterial Blood Gas Sample Site Right radial Blood Gas Patient Temperature 37.0 Arterial Blood Date Drawn [id number] Arterial Blood pH 7.521 (7.350-7.450) Arterial Blood Partial Pressure CO2 32.0 mmHg (32.0-45.0) Arterial Blood Partial Pressure O2 54.1 mmHg (83.0-108.0) Arterial Blood HCO3 25.6 mmol/L (21.0-28.0) Arterial Blood Oxygen Saturation 89.4 % (94.0-98.0) Arterial Blood Base Excess 3.3 mmol/L (-2.0-3.0) Arterial Blood Oxyhemoglobin 88.4 % (94.0-98.0) Arterial Blood Carboxyhemoglobin 0.3 % (0.5-1.5) Arterial Blood Methemoglobin 0.8 % (0.0-1.5) Supa Test Yes Blood Gas Total Hemoglobin 13.30 g/dL (12.0-16.0) Blood Gas Modality Room air Blood Gas Spontaneous Rate 22 FiO2 % 21.0 Blood Gas Critical Value Read Back Yes Blood Gas Notified Whom Md. cristina gordon Blood Gas Notified Time [id number] Blood Gas Notified By Rt moe olson White Blood Count 12.1 10^3/uL (4.4-10.8) Red Blood Count 4.33 10^6/uL (4.0-5.20) Hemoglobin 12.9 g/dL (12.2-16.2) Hematocrit 38.2 % (36.0-46.0) Mean Corpuscular Volume 88.3 fL (80.0-100.0) Mean Corpuscular Hemoglobin 29.7 pg (28.0-32.0) Mean Corpuscular Hemoglobin Concent 33.6 g/dL (32.0-36.0) Red Cell Distribution Width 13.8 % (11.8-14.3) Platelet Count 579 10^3/uL (140-450) Mean Platelet Volume 7.5 fL (6.9-10.8) Neutrophils (%) (Auto) 72.6 % (37.0-80.0) Lymphocytes (%) (Auto) 14.1 % (10.0-50.0) Monocytes (%) (Auto) 10.3 % (0.0-12.0) Eosinophils (%) (Auto) 2.4 % (0.0-7.0) Basophils (%) (Auto) 0.6 % (0.0-2.0) Neutrophils # (Auto) 8.8 10 ^3/uL (1.6-8.6) Lymphocytes # (Auto) 1.7 10 ^3/uL (0.4-5.4) Monocytes # (Auto) 1.2 10 ^3/uL (0-1.3) Eosinophils # (Auto) 0.3 10 ^3/uL (0-0.8) Basophils # (Auto) 0.1 10 ^3/uL (0-0.2) Nucleated Red Blood Cells 0.0 % Prothrombin Time 12.2 sec (9.3-11.8) Prothrombin Time INR 1.17 (0.9-1.15) Activated Partial Thromboplast Time 26.0 SEC (24.5-34.5) Sodium Level 137 mmol/L (136-145) Potassium Level 3.7 mmol/L (3.5-5.1) Chloride Level 102 mmol/L (98-107) Carbon Dioxide Level 24 mmol/L (20-31) Anion Gap 11 (5-15) Blood Urea Nitrogen 14 mg/dL (9-23) Creatinine 0.65 mg/dL (0.550-1.02) Glomerular Filtration Rate Calc 93 mL/min (>90) BUN/Creatinine Ratio 21.5 (10.0-20.0) Serum Glucose 171 mg/dL (74-106) Calcium Level 9.3 mg/dL (8.7-10.4) Ferritin 163.2 ng/mL (10-291) Total Bilirubin 0.5 mg/dL (0.2-1.0) Aspartate Amino Transferase (AST) 169 U/L (13-40) Alanine Aminotransferase (ALT) 142 U/L (7-40) Alkaline Phosphatase 118 U/L (46-116) Total Protein 6.6 g/dL (5.7-8.2) Albumin 3.9 g/dL (3.2-4.8) Hepatitis A IgM Antibody Negative Hepatitis A Antibody Total Positive (Negative) Hepatitis B Surface Antigen Negative (Negative) Hepatitis B Surface Antibody Negative (Negative) Hepatitis B Core Total Antibody Negative (Negative) Hepatitis C Antibody Negative (Negative) Test 12/13/24 06:20 12/13/24 06:01 12/13/24 01:50 12/12/24 23:39 Triglycerides Level 101 mg/dL (< 150) Cholesterol Level 105 mg/dL (< 200) LDL Cholesterol 52 mg/dL (< 100) HDL Cholesterol 27 mg/dL (40-59) Urine Color Yellow (Yellow) Urine Clarity Clear (Clear) Urine pH 5.5 (5.0-9.0) Urine Specific [place] 1.029 (1.001-1.035) Urine Protein Trace (Negative) Urine Ketones Trace (Negative) Urine Blood Negative /uL (Negative) Urine Nitrite Negative (Negative) Urine Bilirubin Negative (Negative) Urine Urobilinogen 2 mg/dL (Negative) Urine Leukocyte Esterase Negative /uL (Negative) Urine RBC <1 /hpf (0 - 4) Urine Microscopic WBC 1 /HPF (0-5) Urine Squamous Epithelial Cells None seen /hpf (<5) Urine Bacteria None seen /hpf (None Seen) Urine Hyaline Casts Few /lpf (0 - 2) Urine Glucose Normal mg/dL (Normal) Lactic Acid Level 0.9 mmol/L (0.4-2.0) Troponin I High Sensitivity 7 ng/L (</=34) Other Laboratory Tests 12/14/24 05:55 Brief Hx & Hospital Course: Patient is a 74-year-old female with past medical history of Alzheimer's dementia, diabetes, CAD s/p PCI in 2003, hypertension, CVA on 11/21/2024 who comes in due to increasing confusion. Patient is a poor historian and AO x1 at baseline. At the time of my assessment patient is AO x2. According to patient's family she has been having increasing confusion over the last few days along with decreasing oral intake headaches and polydipsia which is what prompted this visit to the hospital. CT head showed Right MCA distribution areas of encephalomalacia likely from infarct with serpinginous densities over the sulci, is probably hemosiderin staining however hemorrhagic transformation is a possibility. Repeat head CT showed redemonstration of encephalomalacia along right MCA with cortical hyperdensities concerning for gliosis versus hemosiderin staining from chronic infarct. CXR showed left basilar atelectasis versus developing infection. On physical exam patient had extensive bilateral wheezing along with decreased strength in the left upper and lower extremities. Hospital course: Patient was initially presented with metabolic encephalopathy and reduced p.o. intake. CT scan revealed old infarct in right MCA with cortical hyperdensity concerning for gliosis versus hemosiderin staining from chronic infarct and MRI revealed large acute right MCA territory infarct. Patient has a history of end-stage Alzheimer dementia and alert and oriented x1 which is her baseline and swallow evaluation done and recommended pureed diet. GI was consulted for possible PEG tube placement as per family request and GI mentioned the patient is able to tolerate pureed diet, recommended thickened with nectar and no plan for PEG tube at this time. For possible pneumonia patient was treated with IV ceftriaxone 1 g daily and IV azithromycin 500 mg daily. Neurology was on board and cleared the patient for discharge. ABG on room air showed Po2<55 and social director was consulted to arrange home oxygen and also home health for PT. Discharge plan was discussed with the daughter and all questions were answered. Patient is being discharged to home with levofloxacin 750 mg daily for 7 days, continue home medications except statin and follow up with PCP and check CMP in 7 days. Physical examination: General Appearance: Alert, Oriented X1, Cooperative, No acute distress HEENT: Atraumatic, PERRLA, EOMI, Mucous membrane moist/pink Respiratory: Bilateral Wheezing and crackles on the left side Cardiovascular: Regular rate, Normal S1, Normal S2, No murmurs, no chest wall tenderness Abdominal: Normal bowel sounds, Soft, No tenderness, No hepatospenomegaly, No masses Extremities: No clubbing, No cyanosis, No edema, Normal pulses, No tenderness/swelling Skin: No rashes, No breakdown, No significant lesion Neuro: Lt sided residual weakness, Normal speech, Strength at 5/5 X2 ext, Normal tone, Sensation intact, grossy intact cranial nerves. Psych/Mental Status: Could not be assessed as patient has end-stage Alzheimer's dementia. Consults/Reason for consult Neurology and GI were consulted Operations or Procedures EXAM: CT HEAD WITHOUT CONTRAST INDICATION: fall, trauma, pain TECHNIQUE: CT of the head without intravenous contrast. Radiation Dose : 1. Head: CT Dose: CTDI volume is 52.29 mGy. Dose-length product is 926.08 mGy*cm The dose indicators for CT are the volume Computed Tomography (CT) Dose Index (CTDIvol) and the Dose Length Product (DLP), and are measured in units of mGy and mGy-cm, respectively. These indicators are not patient dose, but values generated from the CT scanner acquisition factors. The report includes radiation exposure data for exposures received during this examination. COMPARISON: CT HEAD WITHOUT CONTRAST on DOS: 12/12/24 FINDINGS: Redemonstration of encephalomalacia along the right MCA distribution with serpiginous cortical hyperdensities likely representing gliosis or hemosiderin stain from chronic infarct. The ventricles, sulci and cisterns are age appropriate. The jenkins-white differentiation is intact. Patchy periventricular and subcortical white matter hypoattenuation is nonspecific but may be related to small vessel ischemic disease. The visualized paranasal sinuses and mastoid air cells are clear. The surrounding soft tissues and osseous structures are unremarkable. IMPRESSION: No acute intracranial abnormality. Findings are unchanged from CT dated 12/12/2024 at 2:49 p.m. Findings are therefore likely veterans contact representative of chronic right MCA distribution infarct/ encephalomalacia with gliosis and/or chronic hemosiderin staining. EXAM: MRI BRAIN HEAD WO CONTRAST; DATE: 12/13/2024 03:16 PM HISTORY: xva COMPARISON: Prior CT scans without IV contrast dated 12/12/2024 TECHNIQUE: MRI was performed utilizing multiple appropriate imaging planes and pulse sequences. FINDINGS: SUPRATENTORIAL REGION: Large right MCA territorial infarct restricted diffusion noted. There is sulcal effacement no mass effect on right lateral ventricle. There is no midline shift. Evaluation is very limited due to motion degradation. POSTERIOR FOSSA: No acute abnormality. BRAINSTEM: Unremarkable. SELLAR/SUPRASELLAR REGION: Unremarkable. VENTRICLES, CISTERNS, SULCI: Age-appropriate. ORBITS: Unremarkable. PARANASAL SINUSES: Unremarkable. MASTOID AIR CELLS: Small bilateral mastoid effusions. VASCULATURE: Unremarkable. BONES/ SOFT TISSUES: Unremarkable. OTHER: None. IMPRESSION: 1. Large acute right MCA territorial infarct. There is sulcal effacement but no mass effect on the right lateral ventricle and no midline shift noted. Evaluation is very limited due to motion degradation. Sulcal calcification / hemosiderin deposit is poorly evaluated due to motion degradation and limited sequences in this fast MRI. 2. Small bilateral mastoid effusions. INDICATION: Hepatic steatosis TECHNIQUE: Multiple real-time sonographic images were obtained of the right upper quadrant. COMPARISON: None FINDINGS: The liver demonstrates homogeneous echotexture without focal mass lesions. The liver measures 14.5 cm. There is no intrahepatic or extrahepatic ductal dilatation. The common duct measures 1.3 cm. Post cholecystectomy The right kidney measures 10.2 cm. The right kidney is normal in contour, size, and shape. The echogenicity is normal. There is no hydronephrosis. The pancreas is not well visualized due to overlying bowel gas. IMPRESSION: Post cholecystectomy. 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 Medications: Levofloxacin 750 mg for 7 days. Continue home medications. Discharge Statement: "Patient was advised to return to the ER or call 911 if any headaches, dizziness, shortness of breath, chest pain, abdominal pain, bleeding, fevers, or worsening of medical condition. Patient was counseled about treatment plan, medications, possible side effects, patientverbalized understanding. All questions were answered to the best of my ability. 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
[2024-12-14] MEDS ORDERED: MEMA1TAB5 PO (21:55)
[2024-12-14] MEDS ORDERED: CALC1TAB92 PO (21:55)
[2024-12-14] MEDS ORDERED: MIRT1TAB40 PO (21:55)
[2024-12-14] MEDS ORDERED: DONE10TA91 PO (21:55)
[2024-12-14] MEDS ORDERED: TRAZ-228 PO (21:55)
[2024-12-14] MEDS ORDERED: CYAN100042 PO (21:55)
[2024-12-14] MEDS ORDERED: ATOR40TA52 PO (21:55)
[2024-12-14] MEDS ORDERED: BENA40TA71 PO (21:55)
[2024-12-14] MEDS ORDERED: METF-372 PO (21:55)
[2024-12-14] MEDS ORDERED: META5TAB PO (21:55)
[2024-12-14] MEDS ORDERED: LABE100T7 PO (21:55)
[2024-12-14] MEDS ORDERED: INSUINJ37 SC (21:55)
[2024-12-14] MEDS ORDERED: TRAM50TA2 PO (21:55)
[2024-12-14] MEDS ORDERED: RIME75TA PO (21:55)
[2024-12-14] MEDS ORDERED: INSU100I54 SC (21:55)
[2024-12-14] MEDS ORDERED: CHOL20007 PO (21:57)
[2024-12-14] MEDS: INSULIN LANTUS (GLARGINE) 1 /0.01ml (100units/ml) SC SCH (22:44)
[2024-12-15 01:00] VITALS: BP 127/54; PULSE 70; RESP 18; TEMP 98.8; O2SAT 97
[2024-12-15] MEDS: ACETAMINOPHEN 325 MG TAB PO ONE (01:10)
[2024-12-15 05:00] VITALS: BP 134/53; PULSE 66; RESP 18; TEMP 98; O2SAT 96
[2024-12-15 08:00] VITALS: PULSE 77; RESP 18; O2SAT 96
[2024-12-15 08:30] VITALS: BP 137/54; PULSE 77; RESP 16; TEMP 98.2; O2SAT 96
[2024-12-15 10:04] VITALS: O2SAT 93
--- NOTE | 2024-12-15 11:27 | DVHPN2 ---
Progress Note Date Seen: Dec 15, 2024 Resident Creating Document: ORALIA AQUINO RESIDENT Medical Necessity Reason Pt with a Central, PICC or Fol: No Subjective Review of Systems Patient seen and examined at the bedside. Patient reported that she has been able to eat, reported no new complaints. At this point she may not need PEG tube. Objective vital signs Vital Sign Date Time Temp Pulse Resp B/P (MAP) Pulse Ox O2 Delivery O2 Flow Rate FiO2 12/15/24 08:30 98.2 77 16 137/54 (81) 96 98.2 12/14/24 21:40 Nasal Cannula* 2 28 Total Intake and Output 12/14/24 12/14/24 12/15/24 14:59 22:59 06:59 Intake Total 300 ml 150 ml Output Total 750 ml Balance 300 ml -600 ml medications Current Medications Medications Dose Ordered Sig/Tash Route Start Time Stop Time Status Last Admin Dose Admin Ceftriaxone Sodium 50 ml @ 100 mls/hr DAILY@09 IV 12/13/24 09:00 12/14/24 08:55 100 MLS/HR Azithromycin 250 ml @ 125 mls/hr DAILY IV 12/13/24 10:00 12/14/24 09:51 125 MLS/HR Lisinopril 40 mg DAILY PO 12/13/24 04:30 12/14/24 09:49 40 MG Clopidogrel Bisulfate 75 mg DAILY PO 12/13/24 04:45 12/14/24 09:49 75 MG Diagnostic Test (Pha) 1 strip ACHS 12/13/24 07:00 12/15/24 06:17 1 STRIP Insulin Human Regular ACHS SC 12/13/24 07:00 12/15/24 06:16 3 UNITS Dextrose 50 ml UD PRN IV 12/13/24 04:45 Amlodipine Besylate 10 mg DAILY PO 12/13/24 10:00 12/14/24 09:48 10 MG Lorazepam 1 mg ONCE PRN IV 12/13/24 11:00 Donepezil HCl 10 mg HS PO 12/13/24 22:00 12/14/24 22:45 10 MG Memantine 5 mg Q12HR PO 12/13/24 22:00 12/14/24 22:45 5 MG Albuterol 2.5 mg Q6HPRN PRN NEB 12/14/24 07:00 Ipratropium [place] 0.5 mg Q6HPRN PRN NEB 12/14/24 07:00 Insulin Glargine 10 units HS SC 12/14/24 22:00 12/14/24 22:44 10 UNITS Examination Pt is lying on bed General Appearance: Alert, Cooperative, Not in acute distress HEENT: Atraumatic, Mucous membranes moist/pink Respiratory: Clear to auscultation, Normal air movement, No added sounds Cardiovascular: Regular rate, Normal S1, Normal S2, No murmurs Abdominal: Active bowel sounds, Soft, no distention, no tenderness Extremities: No edema, Normal pulses, No tenderness/swelling Skin: No Significant rash, except past surgical scars Neuro: Residual weakness for past CVA Nurse was there as sharperone during examination laboratory and microbiology Laboratory Tests 12/14/24 05:55 Test 12/14/24 05:55 Range/Units Serum Glucose 171 H 74-106 mg/dL Microbiology Date/Time Source Procedure Growth Status 12/14/24 08:07 Nose MRSA Screen - Final Complete 12/13/24 06:01 Voided Urine Urine Culture - Preliminary Resulted 12/13/24 01:50 Blood Blood Culture - Preliminary NO GROWTH AFTER 48 HOURS OF INCUBATION. Resulted Labs and/or images reviewed: Labs reviewed by me, Image(s) reviewed by me Problem List/Assessment/Plan Problem List/Assessment/Plan Dysphagia History CVA Sepsis Pneumonia Elevated LFTs Hepatitis A positive Plan: Monitor LFTs. SOPHIE. Ferritin. Hepatitis a IgM Patient is able to tolerate pureed diet, recommend thickened with nectar No plan for PEG tube at this time Hold hepatotoxic medications We will continue to follow patient on outpatient Thank you so much for the opportunity to consult on your patient. GI team will sign off patient. Reconsult if needed. Case an action plan discussed with Dr. Amelia Pandey. Complex care planning needed total 49 minutes of detailed discussion. Plan discussed with: Patient ORALIA AQUINO RESIDENT Dec 15, 2024 11:26
[2024-12-15 12:27] VITALS: BP 126/55; PULSE 69; RESP 16; TEMP 97.6; O2SAT 95
--- NOTE | 2024-12-15 18:08 | DVHPNRES ---
Progress Note Date Seen: Dec 15, 2024 Resident Creating Document: BRO ALLEN RESIDENT Medical Necessity Reason Pt with a Central, PICC or Fol: No Subjective Review of Systems Patient was seen and examined on the bedside. She is alert oriented x1. Today patient went to home with home health for PT and home oxygen. Objective vital signs Vital Sign Date Time Temp Pulse Resp B/P (MAP) Pulse Ox O2 Delivery O2 Flow Rate FiO2 12/15/24 12:27 97.6 69 16 95 12/15/24 11:22 137/54 12/15/24 10:04 Nasal Cannula* 2 28 Total Intake and Output 12/14/24 12/14/24 12/15/24 15:00 23:00 07:00 Intake Total 300 ml 150 ml Output Total 750 ml Balance 300 ml -600 ml Examination Physical examination: General Appearance: Alert, Oriented X1, Cooperative, No acute distress HEENT: Atraumatic, PERRLA, EOMI, Mucous membrane moist/pink Respiratory: Bilateral Wheezing and crackles on the left side Cardiovascular: Regular rate, Normal S1, Normal S2, No murmurs, no chest wall tenderness Abdominal: Normal bowel sounds, Soft, No tenderness, No hepatospenomegaly, No masses Extremities: No clubbing, No cyanosis, No edema, Normal pulses, No tenderness/swelling Skin: No rashes, No breakdown, No significant lesion Neuro: Lt sided residual weakness, Normal speech, Strength at 5/5 X2 ext, Normal tone, Sensation intact, grossy intact cranial nerves. Psych/Mental Status: Could not be assessed as patient has end-stage Alzheimer's dementia laboratory and microbiology Laboratory Tests 12/14/24 05:55 Test 12/14/24 05:55 Range/Units Serum Glucose 171 H 74-106 mg/dL Microbiology Date/Time Source Procedure Growth Status 12/14/24 08:07 Nose MRSA Screen - Final Complete 12/13/24 06:01 Voided Urine Urine Culture - Final Complete 12/13/24 01:50 Blood Blood Culture - Preliminary NO GROWTH AFTER 48 HOURS OF INCUBATION. 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 - Ordered MRI - Neurology on board - Lisinopril 40 mg daily and amlodipine 10 mg daily - Plavix 75 mg daily and atorvastatin 40 mg at HS - Memantine 5 mg b.i.d. and Aricept 10 mg at HS - Echo on 12/13/24 showed 55-60% with mild diastolic dysfunction # Type 2 diabetes mellitus, hemoglobin A1c 7.7 on 11/16/2024 - Mild sliding scale of insulin # DVT prophylaxis - Lovenox 40 mg sc daily Goal of care could not be discussed as patient is not fully alert and oriented but spoke with the daughter over phone for more than 16 minutes full code Plan discussed with Plan discussed with: Patient, Other My Orders My Orders Orders - BRO ALLEN RESIDENT Procedure Category Date Status Time * [employer] CONS 12/15/24 Transmitted Consult Discharge DISCHARGE 12/15/24 Transmitted 10:32 Date of Service: Dec 15, 2024 Billing Provider: UZAIR HAY DO Common Visit Codes: [id number] INP/OBS CARE(HIGH) BRO ALLEN RESIDENT Dec 15, 2024 18:08 UZAIR HAY DO Dec 15, 2024 20:52
== END 2024-12-15 13:10 | disposition home health service (06) | DRG 871 ==
LOC: EDUNIT# 14:06 → EDBD 14:06 → ER 14:06 → OVERFLOW 12-13 01:24 → WEST WING 12-14 21:28
PROVIDERS: ADMIT Internal Medicine; ATTEND Internal Medicine
DX: A41.59 Other Gram-negative sepsis (principal); G93.41 Metabolic encephalopathy; J15.69 Pneumonia due to other Gram-negative bacteria; J96.01 Acute respiratory failure with hypoxia; J15.9 Unspecified bacterial pneumonia; I16.1 Hypertensive emergency; B15.9 Hepatitis A without hepatic coma; G30.9 Alzheimer's disease, unspecified; F02.80 Dementia in other diseases classified elsewhere, unspecified severity, without behavioral disturbance, psychotic disturbance, mood disturbance, and anxiety; E11.622 Type 2 diabetes mellitus with other skin ulcer; L97.529 Non-pressure chronic ulcer of other part of left foot with unspecified severity; I25.10 Atherosclerotic heart disease of native coronary artery without angina pectoris; R13.10 Dysphagia, unspecified; Z79.899 Other long term (current) drug therapy; Z98.61 Coronary angioplasty status; Z80.8 Family history of malignant neoplasm of other organs or systems; Z82.49 Family history of ischemic heart disease and other diseases of the circulatory system; Z90.710 Acquired absence of both cervix and uterus; Z98.891 History of uterine scar from previous surgery
CPT/HCPCS: 36415; 36600; 70450; 70551; 71045; 76705; 80048; 80053; 80061; 81001; 82728; 82805; 82962; 83605; 84484; 85025; 85610; 85730; 86038; 86704; 86706; 86708; 86709; 86803; 87040; 87081; 87086; 87340; 92610; 93005; 93306; 99291; 99292; G0378; J1815

== ENCOUNTER 2024-12-26 20:09 | Inpatient (IN) | payer OTHER ==
[~2024-12-26] VITALS: Ht 162.6 cm; Wt 63.1 kg
[~2024-12-26 20:09] MED LIST changes: +AMLO1TAB23 PO; +ATOR40TA52 PO; +BENA40TA71 PO; +CALC1TAB92 PO; -CEFP200T15 PO; +CHOL20007 PO; +CLOP75TA28 PO; +CYAN100042 PO; +DONE10TA91 PO; +DONE5TAB80 PO; +INSU100I54 SC; +INSUINJ37 SC; +LABE100T7 PO; +LEVO750T40 PO; +LISI40TA16 PO; +MEMA1TAB3 PO; +MEMA1TAB5 PO; +META5TAB PO; +METF-372 PO; +MIRT1TAB40 PO; +RIME75TA PO; +TRAM50TA2 PO; +TRAZ-228 PO
--- NOTE | 2024-12-26 20:28 | ED.PDOC ---
History of Present Illness HPI Comments 74-year-old female with PMHx Alzheimer's Disease, Dementia presents with a chief complaint of ALOC x 1600. Patients last known well time was about 1600 this afternoon according to EMS. Patient is nonverbal at this time. Per EMS patient's baseline is GCS 14 secondary to Alzheimer's dementia. Patient was 60 s ystolic per EMS. EMS gave push dose epinephrine and 1 L normal saline for hypotension. Patient is on supplemental oxygen as needed, Time Seen by MD: 20:17 Primary Care Provider: MACINDURAL Reviewed Notes: Medications, Allergies Allergies: Coded Allergies: Aspirin (Verified Allergy, Unknown, 01/28/23) Sulfa Antibiotics (Unverified Allergy, Unknown, 12/26/24) Home Meds Active Scripts Lisinopril (Lisinopril) 40 Mg Tab, 1 TAB PO DAILY for 30 Days, #30 TAB 2 [facility]/14/24 Memantine Hydrochloride (Memantine HCl) 5 Mg Tab, 5 MG PO Q12HP PRN for 30 Days, #60 TAB [facility]/14/24 Clopidogrel Bisulfate (Plavix) 75 Mg Tab, 1 TAB PO DAILY for 30 Days, #30 TAB 1 [facility] 12/14/24 Amlodipine Besylate (Amlodipine Besylate) 10 Mg Tab, 1 TAB PO DAILY for 30 Days, #30 TAB 2 [facility] 12/14/24 Levofloxacin Hemihydrate (LEVOFLOXACIN) 750 Mg Tab, 1 TAB PO DAILY for 7 Days, #7 TAB [facility] 12/14/24 Donepezil Hydrochloride (DONEPEZIL HCL) 5 Mg Tab, 10 MG PO HS for 30 Days, #30 TAB [facility]/14/24 Reported Medications Cholecalciferol (VITAMIN D3) 2,000 Unit Tab, 50 MCG PO DAILY, TAB 12/14/24 Tramadol Hcl (Tramadol Hcl) 50 Mg Tab, 1 TAB PO BIDPRN PRN for PAIN SCALE 7 THRU 10 12/14/24 Rimegepant Sulfate (Nurtec) 75 Mg Tab, 4 MG PO EOD 12/14/24 Metformin Hydrochloride (Metformin Hcl) 1,000 Mg Tab, 1 TAB PO BID 12/14/24 Mirtazapine (Mirtazapine Oral Disintegrating Tablet) 45 Mg Tab, 1 TAB PO HS 12/14/24 Calcium Carbonate (Calcium) 600 Mg Tab, 600 MG PO BID, TAB 12/14/24 Trazodone Hcl (Trazodone Hcl) 100 Mg Tab, 1.5-2 TAB PO HS 12/14/24 Cyanocobalamin (Vitamin B-12) 1,000 Mcg Tab, 1 TAB PO DAILY 12/14/24 Memantine Hydrochloride (Memantine HCl) 10 Mg Tab, 1 TAB PO BID 12/14/24 Donepezil Hydrochloride (Donepezil Hydrochloride) 10 Mg Tab, 1 TAB PO DAILY 12/14/24 Metaxalone (Metaxalone) 800 Mg Tab, 1 TAB PO TID 12/14/24 Labetalol Hcl (Labetalol Hcl) 100 Mg Tab, 1 TAB PO BID 12/14/24 Insulin Lispro (Insulin Lispro Kwikpen) 100 Unit/Ml Inj, SC PER SLIDING SCALE 12/14/24 Insulin Glargine (Lantus Solostar) 100 Unit/Ml Inj, 35 UNITS SC DAILY 12/14/24 Benazepril Hcl (Benazepril Hcl) 40 Mg Tab, 1 TAB PO DAILY 12/14/24 Atorvastatin Calcium (ATORVASTATIN CALCIUM) 40 Mg Tab, 1 TAB PO DAILY 12/14/24 Information Source: Emergency Med Personnel Mode of Arrival: EMS Severity: Moderate Timing: Hours Duration: Since onset Prehospital treatment: 12 Lead EKG, Air Tool Operator, IVF, Oxygen Vital Signs Vital Signs Date Time Temp Pulse Resp B/P (MAP) Pulse Ox O2 Delivery O2 Flow Rate FiO2 12/26/24 20:45 73 12 95 Nasal Cannula* 4 36 12/26/24 20:45 102/57 (72) 12/26/24 20:31 98.6 98.6 Physical Exam General: Awake, alert. No acute distress. Skin: Skin in warm, dry and intact. Appropriate color for ethnicity. HEENT: The head is normocephalic and atraumatic. Conjunctivae are clear without exudates or hemorrhage. Sclera is non-icteric. EOM are intact. No signs of nystagmus. Eyelids are normal in appearance without swelling or lesions. Oral mucosa is pink and moist Neck: The neck is supple with normal range of motion. No JVD. Cardiac: Heart rate and rhythm are normal. No murmurs, gallops, or rubs are auscultated. Respiratory: No signs of respiratory distress. Lung sounds are clear in all lobes bilaterally without rales, rhonchi, or wheezes. Abdominal: Abdomen is soft, nondistended. She reports tenderness to palpation. Bowel sounds are present and normoactive in all four quadrants. Extremities: Chronic wounds on left lower extremity with dressings in place Neurological: The patient is awake, alert, she is able to state her name. Review of Systems: REVIEW OF SYSTEMS: Unable to obtain full ROS due to altered mental status however patient states that she has abdominal pain. She denies chest pain. Past Medical History PAST MEDICAL HISTORY: Alzheimer, CVA, Dementia, DM, HTN Surgical History: Denies all surgeries LUMBER RACKER History: No Pertinent LUMBER RACKER History Family History Family History: Reviewed,noncontributory to illness Social History Smoker: Non-Smoker Alcohol: Denies ETOH Use Drugs: Marijuana Lives In: Home Was a procedure done? Was a procedure done?: No EKG EKG : Pulse Rate (adult): 74 [place]: Normal Block: RBBB Hypertrophy: None ST: Normal Comments No STEMI Differential Dx Considerations may include: Differential diagnosis considered includes but not limited to intracranial hemorrhage, stroke, head injury, seizure, metabolic disturbance, electrolyte imbalance, infection, substance intoxication, psychiatric cause, other systemic illness, other X-Ray, Labs, Meds, VS Vital Signs Date Time Temp Pulse Resp B/P (MAP) Pulse Ox O2 Delivery O2 Flow Rate FiO2 12/26/24 20:45 73 12 95 Nasal Cannula* 4 36 12/26/24 20:45 73 12 102/57 (72) 95 12/26/24 20:31 98.6 72 16 88/50 (63) 95 98.6 12/26/24 20:29 74 12/26/24 20:14 74 Lab Test 12/26/24 21:30 12/26/24 21:24 12/26/24 20:49 Range/Units Urine Color Yellow Yellow Urine Clarity Turbid H Clear Urine pH 5.5 5.0-9.0 Urine Specific [place] 1.026 1.001-1.035 Urine Protein 1+ H Negative Urine Ketones Negative Negative Urine Blood 3+ H Negative /uL Urine Nitrite Negative Negative Urine Bilirubin Negative Negative Urine Urobilinogen Normal Negative mg/dL Urine Leukocyte Esterase Negative Negative /uL Urine RBC 1 0 - 4 /hpf Urine Microscopic WBC 1 0-5 /HPF Urine Squamous Epithelial Cells Few <5 /hpf Urine Bacteria None seen None Seen /hpf Urine Glucose Normal Normal mg/dL Urine Opiates Screen Neg NEGATIVE Urine Fentanyl Screen Pos NEGATIVE Urine Barbiturates Screen Neg NEGATIVE Urine Phencyclidine Screen Neg NEGATIVE Urine Amphetamines Screen Neg NEGATIVE Urine Benzodiazepines Screen Neg NEGATIVE Urine Cocaine Screen Neg NEGATIVE Urine Cannabinoids Screen Pos NEGATIVE Influenza Type A Antigen Negative Negative Influenza Type B Antigen Negative Negative SARS-CoV-2 Antigen (Rapid) Negative NEGATIVE White Blood Count 20.0 H 4.4-10.8 10^3/uL Red Blood Count 4.77 4.0-5.20 10^6/uL Hemoglobin 13.8 12.2-16.2 g/dL Hematocrit 42.1 36.0-46.0 % Mean Corpuscular Volume 88.2 80.0-100.0 fL Mean Corpuscular Hemoglobin 28.9 28.0-32.0 pg Mean Corpuscular Hemoglobin Concent 32.8 32.0-36.0 g/dL Red Cell Distribution Width 13.9 11.8-14.3 % Platelet Count 578 H 140-450 10^3/uL Mean Platelet Volume 8.1 6.9-10.8 fL Neutrophils (%) (Auto) 83.6 H 37.0-80.0 % Lymphocytes (%) (Auto) 9.3 L 10.0-50.0 % Monocytes (%) (Auto) 6.5 0.0-12.0 % Eosinophils (%) (Auto) 0.0 0.0-7.0 % Basophils (%) (Auto) 0.6 0.0-2.0 % Neutrophils # (Auto) 16.8 H 1.6-8.6 10 ^3/uL Lymphocytes # (Auto) 1.9 0.4-5.4 10 ^3/uL Monocytes # (Auto) 1.3 0-1.3 10 ^3/uL Eosinophils # (Auto) 0 0-0.8 10 ^3/uL Basophils # (Auto) 0.1 0-0.2 10 ^3/uL Nucleated Red Blood Cells 0.1 % Sodium Level 147 H 136-145 mmol/L Potassium Level 4.5 3.5-5.1 mmol/L Chloride Level 111 H 98-107 mmol/L Carbon Dioxide Level 24 20-31 mmol/L Anion Gap 12 5-15 Blood Urea Nitrogen 64 H 9-23 mg/dL Creatinine 1.75 H 0.550-1.02 mg/dL Glomerular Filtration Rate Calc 31 >90 mL/min BUN/Creatinine Ratio 36.6 H 10.0-20.0 Serum Glucose 205 H 74-106 mg/dL Lactic Acid Level 3.0 *H 0.4-2.0 mmol/L Calcium Level 10.1 8.7-10.4 mg/dL Magnesium Level 2.0 1.6-2.6 mg/dL Total Bilirubin 0.4 0.2-1.0 mg/dL Aspartate Amino Transferase (AST) 382 H 13-40 U/L Alanine Aminotransferase (ALT) 127 H 7-40 U/L Alkaline Phosphatase 82 46-116 U/L Troponin I High Sensitivity 25 </=34 ng/L B-Type Natriuretic Peptide 25.60 0-100 pg/mL Total Protein 6.5 5.7-8.2 g/dL Albumin 3.9 3.2-4.8 g/dL Lipase 47 12-53 U/L Thyroid Stimulating Hormone (TSH) 0.81 0.55-4.78 uIU/mL Plasma/Serum Blood Alcohol 3.9 <10 mg/dL Current Medications Medications (Trade) Dose Ordered Sig/Tash Route Start Time Stop Time Status Last Admin Sodium Chloride 1,000 ml @ 250 mls/hr Q4H ONCE IV 12/26/24 21:15 12/27/24 01:14 12/26/24 21:19 Sodium Chloride 1,000 ml @ 1,000 mls/hr Q1H ONCE IV 12/26/24 21:45 12/26/24 22:44 DC 12/26/24 22:01 Vancomycin HCl 200 ml @ 200 mls/hr ONCE ONCE IV 12/26/24 21:45 12/26/24 22:44 DC 12/26/24 21:56 Ceftriaxone Sodium 50 ml @ 100 mls/hr ONCE ONCE IV 12/26/24 21:45 12/26/24 22:14 DC 12/26/24 23:01 CHEST RADIOGRAPH Indication: AMS Technique: Single frontal view of the chest was obtained Comparison: XY CHEST PORTABLE on DOS: 12/12/24, XY CHEST XRAY 1 VIEW on DOS: 11/15/24 FINDINGS: Lines and Tubes: None left upper extremity is draped over the left mid chest. Lungs: No focal consolidation. Pleura: No effusion. No pneumothorax. Cardiomediastinal contours: Unremarkable Bones: No acute osseous abnormality. IMPRESSION: 1. No acute cardiopulmonary disease. ATED BY: GEORGE FONTANEZ Jr., DO DICTATED DATE/TIME: 12/26/242127 SIGNED BY: GEORGE FONTAENZ Jr., SIGNED DATE/TIME: 12/26/242127 CC: CT HEAD WITHOUT CONTRAST INDICATION: Altered mental status COMPARISON: CT HEAD WITHOUT CONTRAST on DOS: 12/12/24, MRI brain 12/13/24 TECHNIQUE: CT of the head without intravenous contrast. RADIATION DOSE: CTDIvol: mGy, DLP: mGy*cm FINDINGS: Again noted is a large subacute right MCA territory infarct involving the right temporal lobe, insula, basal ganglia, frontal and parietal lobes which was noted to be acute on the MRI study from 12/13/2024. There is multifocal cortical hyperdensity within this infarct consistent with petechial hemorrhage and/or laminar necrosis. No significant mass effect. No extra-axial collection, mass effect, midline shift, herniation or hydrocephalus. Mild chronic white matter microvascular ischemic change. Khak-[id number] ventricular enlargement related to cerebral volume loss. Visualized paranasal sinuses and mastoid air cells are clear. Soft tissues and osseous structures are unremarkable. IMPRESSION: Large subacute right MCA territory infarct which was noted to be acute on the MRI study from 12/13/2024. There is multifocal cortical hyperdensity within this infarct consistent with petechial hemorrhage and/or laminar necrosis. No significant mass effect. Overall no significant change compared to the prior CT scan from 12/12/2024. ATED BY: KOOK CELIS MD DICTATED DATE/TIME: 12/26/242132 SIGNED BY: KOKO CELIS MD SIGNED DATE/TIME: 12/26/242132 CC: PATIENT: ANGELICA MORALEZ ACCT: [id number] UNIT: [id number] : 1950 LOC: ER ROOM / BED: / AGE / SEX: 74 / F ADM STATUS: REG ER SERVICE 34 ORDERING PHYSICIAN: JAZMINE GERBER MD PROCEDURE(s): ABPL - CT AB PEL WO CON-NO ORAL OR IV REASON: Abdominal pain ORDER NUMBER(s): [id number], ACCESSION NUMBER(s): [id number] Exam: CT CT AB PEL WO CON-NO ORAL OR IV History: Abdominal pain Comparison Study: None TECHNIQUE: Multidetector CT of the abdomen and pelvis was performed from lung bases to pubic symphysis. Imaging was performed without IV contrast. Axial, coronal, and sagittal multiplanar reformats were obtained from the axial data set by the technologist. RADIATION DOSE: DLP 430.09 mGy.cm; CTDI vol 8.01 mGy. Findings: Limited evaluation given noncontrast technique. Lungs: The lung bases are clear. Heart: No cardiomegaly or pericardial effusion. Severe coronary atherosclerosis versus stents. Liver: Unremarkable. Gallbladder: Cholecystectomy. Spleen: Unremarkable Pancreas: Pancreatic atrophy. Adrenals: Unremarkable Kidneys: Unremarkable GI tract: Unremarkable : Unremarkable. Vasculature: Moderate to marked aortoiliac atherosclerosis. Lymphadenopathy: Absent Peritoneum: No ascites Musculoskeletal: Mild to moderate multilevel degenerative changes of the thoracolumbar spine. Soft tissues: Unremarkable Impression: 1. Limited evaluation given noncontrast technique. 2. No acute abdominopelvic abnormalities. Images Reviewed?: Images reviewed and evaluated by me (Independent interpretation of chest x-ray: No acute disease) Time of 1ST Reevaluation: 20:47 Reevaluation 1ST: Unchanged Patient Education/Counseling: Other (Need for admission) Family Education/Counseling: Other (Need for admission) Departure 1 Departure Time of Disposition: 21:56 Impression: Primary Impression: Altered mental status Additional Impressions: Sepsis PHILLIP (acute kidney injury) Disposition: ADMITTED INPATIENT Condition: Stable Comments 74-year-old female with history of Alzheimer's dementia presents with change in mental status. There is leukocytosis-WBC count 20, elevation of platelet count at 578. Patient has been hypotensive however afebrile. Lactic acid was elevated at 3.0. Antibiotics and IV fluids initiated in the emergency department for treatment of suspected sepsis. Chest x-ray negative . Urinalysis pending. BUN and creatinine are elevated from previous labs on 12/14/2024. GFR is reduced. PATIENT IS STATUS POST CVA ON 11/21/2024 WITH LEFT-SIDED RESIDUAL WEAKNESS. CT head without contrast on 12/12/2024 showed encephalomalacia along right MCA distribution with serpiginous cortical hypodensities likely representing gliosis or hemosiderin stain from chronic infarct however there was no acute intracranial abnormality. Today there is multifocal cortical hyperdensity within this infarct consistent with petechial hemorrhage and/or laminar necrosis which the radiologist's interpreted as no significant change compared to prior study on 12/12/2024. Extensive evaluation was performed in attempt to identify or rule out: (See differential diagnosis section) The following tests were ordered, and results were reviewed by me and discussed with patient: (See diagnostic results section) The following test were independently interpreted by me: EKG, chest x-ray I reviewed the following notes from the pt's past medical encounters: Encounter 12/12/24 for altered mental status Additional information was gathered from interviewing the following independent historians: EMS personnel, patient's family at bedside Discussion of management or test interpretation with external physician/other qualified health adult care manager: N/A Addressed an acute or chronic illness that poses a threat to life or bodily function: Acute kidney injury, sepsis Decision regarding hospitalization or escalation of hospital level of care: Risk and benefits of admission for further treatment of patient's condition was considered. Due to patient's current clinical condition, high risk of decline and poor outcome if discharged and need for further inpatient management and monitoring, patient will be admitted to the hospital. Drug therapy requiring intensive monitoring for toxicity: N/A Parenteral controlled substances: N/A Decision regarding elective major surgery with identified patient or procedure risk factors: N/A Decision regarding emergency major surgery: N/A Decision not to resuscitate or to de-escalate care because of poor prognosis: N/A Diagnosis or treatment significantly limited by social determinants of health: N/A Critical Care Note Critical Care Time?: No Stability Stability form required: No Heart Score Heart Score: Heart Score Response (Comments) Value History N/A 0 EKG N/A 0 Age N/A 0 Risk Factors N/A 0 Troponin N/A 0 Total 0 I personally scribed for JAZMINE GERBER MD ([email or web address]) on 12/26/24 at 20:28. Electronically submitted by Marty Plascencia ([email or web address]). I personally scribed for JAZMINE GERBER MD ([email or web address]) on 12/26/24 at 20:29. Electronically submitted by Marty Plascencia ([email or web address]). JAZMINE GERBER MD December 26, 2024 20:28
[2024-12-26 20:45] VITALS: PULSE 73; RESP 12; O2SAT 95
[2024-12-26 21:03] LABS: Basophils # (auto) 0.1 10 ^3/uL (0-0.2); Basophils % (auto) 0.6 % (0.0-2.0); Eosinophils # (auto) 0 10 ^3/uL (0-0.8); Hematocrit 42.1 % (36.0-46.0); Hemoglobin 13.8 g/dL (12.2-16.2); Lymphocytes # (auto) 1.9 10 ^3/uL (0.4-5.4); Lymphocytes % (auto) 9.3 % (10.0-50.0); Mean Corpuscular Hemoglobin 28.9 pg (28.0-32.0); Mean Corpuscular Hgb Conc. 32.8 g/dL (32.0-36.0); Mean Corpuscular Volume 88.2 fL (80.0-100.0); Monocytes # (auto) 1.3 10 ^3/uL (0-1.3); Monocytes % (auto) 6.5 % (0.0-12.0); Neutrophils # (auto) 16.8 10 ^3/uL (1.6-8.6); Neutrophils % (auto) 83.6 % (37.0-80.0); Nucleated Red Blood Cells % 0.1 %; Platelet Count (auto) 578 10^3/uL (140-450); Red Blood Cells 4.77 10^6/uL (4.0-5.20); Red Cell Distribution Width 13.9 % (11.8-14.3)
[2024-12-26] MEDS: SODIUM CHLORIDE 0.9% 1,000 ML IV ONE ×2 (21:19→22:01)
[2024-12-26 21:21] LABS: Albumin 3.9 g/dL (3.2-4.8); Alkaline Phosphatase 82 U/L (46-116); Anion Gap 12 (5-15); BUN/Creatinine Ratio 36.6 (10.0-20.0); Blood Alcohol 3.9 mg/dL (<10); Calcium 10.1 mg/dL (8.7-10.4); Carbon Dioxide 24 mmol/L (20-31); Potassium 4.5 mmol/L (3.5-5.1); Total Protein 6.5 g/dL (5.7-8.2)
[2024-12-26 21:22] LABS: Bilirubin, Total 0.4 mg/dL (0.2-1.0)
--- NOTE | 2024-12-26 21:31 | DVH ---
CHEST RADIOGRAPH Indication: AMS Technique: Single frontal view of the chest was obtained Comparison: XY CHEST PORTABLE on DOS: 12/12/24, XY CHEST XRAY 1 VIEW on DOS: 11/15/24 FINDINGS: Lines and Tubes: None left upper extremity is draped over the left mid chest. Lungs: No focal consolidation. Pleura: No effusion. No pneumothorax. Cardiomediastinal contours: Unremarkable Bones: No acute osseous abnormality. IMPRESSION: 1. No acute cardiopulmonary disease.
[2024-12-26 21:33] LABS: Alanine Aminotransferase 127 U/L (7-40); Aspartate Aminotransferase 382 U/L (13-40); Blood Urea Nitrogen 64 mg/dL (9-23); Chloride 111 mmol/L (98-107); Glucose 205 mg/dL (74-106); Sodium 147 mmol/L (136-145)
--- NOTE | 2024-12-26 21:35 | DVH ---
CT HEAD WITHOUT CONTRAST INDICATION: Altered mental status COMPARISON: CT HEAD WITHOUT CONTRAST on DOS: 12/12/24, MRI brain 12/13/24 TECHNIQUE: CT of the head without intravenous contrast. RADIATION DOSE: CTDIvol: mGy, DLP: mGy*cm FINDINGS: Again noted is a large subacute right MCA territory infarct involving the right temporal lobe, insula , basal ganglia, frontal and parietal lobes which was noted to be acute on the MRI study from 12/14/19. There is multifocal cortical hyperdensity within this infarct consistent with petechial hemorrhag e and/or laminar necrosis. No significant mass effect. No extra-axial collection, mass effect, midline shift, herniation or hydrocephalus. Mild chronic whit e matter microvascular ischemic change. Gaoh-[id number] ventricular enlargement related to cerebral volume loss. Visualized paranasal sinuses and mastoid air cells are clear. Soft tissues and osseous structures are unremarkable. IMPRESSION: Large subacute right MCA territory infarct which was noted to be acute on the MRI study from 5. There is multifocal cortical hyperdensity within this infarct consistent with petechial hemorrhage and/or laminar necrosis. No significant mass effect. Overall no significant change compared to the prior CT scan from 12/12/2024.
[2024-12-26 21:44] LABS: Lipase 47 U/L (12-53)
--- NOTE | 2024-12-26 21:45 | DVH ---
Exam: CT CT AB PEL WO CON-NO ORAL OR IV History: Abdominal pain Comparison Study: None TECHNIQUE: Multidetector CT of the abdomen and pelvis was performed from lung bases to pubic symphysi s. Imaging was performed without IV contrast. Axial, coronal, and sagittal multiplanar reformats were obtained from the axial data set by the technologist. RADIATION DOSE: DLP 430.09 mGy.cm; CTDI vol 8.01 mGy. Findings: Limited evaluation given noncontrast technique. Lungs: The lung bases are clear. Heart: No cardiomegaly or pericardial effusion. Severe coronary atherosclerosis versus stents. Liver: Unremarkable. Gallbladder: Cholecystectomy. Spleen: Unremarkable Pancreas: Pancreatic atrophy. Adrenals: Unremarkable Kidneys: Unremarkable GI tract: Unremarkable : Unremarkable. Vasculature: Moderate to marked aortoiliac atherosclerosis. Lymphadenopathy: Absent Peritoneum: No ascites Musculoskeletal: Mild to moderate multilevel degenerative changes of the thoracolumbar spine. Soft tissues: Unremarkable Impression: 1. Limited evaluation given noncontrast technique. 2. No acute abdominopelvic abnormalities.
[2024-12-26 21:56] LABS: Urine Bacteria None Seen /hpf (None Seen)
[2024-12-26] MEDS: VANCOMYCIN 1GM/200ML PM 200 ML IV ONE (21:56)
[2024-12-26 21:57] LABS: Rapid Influenza A Negative (Negative); Rapid Influenza B Negative (Negative)
[2024-12-26 21:58] LABS: COVID19 ANTIGEN SOFIA FIA NEGATIVE (NEGATIVE)
[2024-12-26 22:09] LABS: Urine Blood 3+ /uL (Negative); Urine Clarity Turbid (Clear); Urine Color Yellow (Yellow); Urine Protein, UAD 1+ (Negative); Urine Specific Gravity 1.026 (1.001-1.035); Urine Squamous Epithelial Cell FEW /hpf (<5); Urine Urobilinogen Normal (Negative); Urine WBC 1 /HPF (0-5); Urine pH 5.5 (5.0-9.0)
[2024-12-26 22:19] LABS: Amphetamine Screen, Urine Neg (NEGATIVE); Cannabinoid Screen, Urine Pos (NEGATIVE); Opiate Scree,Urine Neg (NEGATIVE); Phencyclidine Screen, Urine Neg (NEGATIVE)
[2024-12-26 22:27] LABS: Barbiturate Scree,Urine Neg (NEGATIVE); Benzodiazephine Screen, Urine Neg (NEGATIVE); Cocaine Screen, Urine Neg (NEGATIVE)
[2024-12-26] MEDS ORDERED: MORPHINE SULFATE INJ 2 MG/ml SYRG IV PRN ×2 (22:45)
[2024-12-26] MEDS ORDERED: NITROGLYCERIN 0.4 MG SL TAB SL PRN (22:45)
[2024-12-26] MEDS ORDERED: ACETAMINOPHEN 325 MG TAB PO PRN (22:45)
[2024-12-26] MEDS ORDERED: VANCOMYCIN PER PHARMACY 0 MG IV SCH (23:00)
[2024-12-26] MEDS: cefTRIAXone 1GM/50ML D5W 50 ML IV ONE (23:01)
[2024-12-26] MEDS: SODIUM CHLORIDE 0.9% 1,000 ML IV SCH (23:04)
[2024-12-26] MEDS ORDERED: DEXTROSE (50%) 50ML SYRG IV PRN (23:15)
[2024-12-26] MEDS: CEFEPIME 1GM/ 50ML 50 ML IV SCH (23:30)
[2024-12-27] VITALS (10 sets, daily range): BP systolic 112–145; BP diastolic 53–90; PULSE 76–104; RESP 15–30; TEMP 97.2–99.8; O2SAT 91–97
[2024-12-27] MEDS: InsuLIN REG 1unit/0.01ml Soln (100units/ml) SC SCH
[2024-12-27] MEDS: ACCU-CHEK COMFORT CURVE STRIP VI SCH (00:16)
--- NOTE | 2024-12-27 03:25 | DVHHP2 ---
History of Present Illness Reason for Visit: sepsis History of Present Illness This is a 74-year-old female with a history of Alzheimers dementia, diabetes mellitus type 2, hypertension, coronary artery disease status post PCI in 2003, and a recent large right MCA territory infarct on november/2024, who presents with acute worsening of mental status. Per EMS, the patient was last seen at her baseline around 1600, at which time she was reportedly alert to person. Subsequently, she became hypotensive (SBP 60 mmHg), requiring 1L IV normal saline and a push dose of epinephrine en route. On arrival, she was placed on supplemental oxygen. The patient has demonstrated progressive confusion over the last two days, decreased oral intake and worsening functional status. Her daughter stated that her sacral wound is getting worse, she has an unstageable sacral wound approximately 10 cm in size. She met sepsis criteria on admission with leukocytosis (WBC 20.0), elevated lactate (3.0), hypotension, and acute kidney injury (Cr 1.75). Blood cultures, sputum, wound and urine cultures were ordered. She was started on IV fluids, vancomycin, and cefepime. A CT abdomen/pelvis was unremarkable. Chest X-ray was negative for consolidation. Head CT showed large right MCA territory infarct with multifocal hyperdensities concerning for petechial hemorrhage, consistent with prior imaging. She is being admitted for sepsis of likely sacral wound origin. She has multiple chronic conditions that complicate management, including severe neurocognitive impairment. Prognosis was discussed with the daughter, and she stated full code according with her mother wishes. Social History Smoker: Non-Smoker Alcohol: Denies ETOH Use Drugs: Marijuana Lives In: Home Review of Systems Review of Systems unable to obtain Allergies: Coded Allergies: Aspirin (Verified Allergy, Unknown, 01/28/23) Sulfa Antibiotics (Unverified Allergy, Unknown, 12/26/24) Medications Current Medications Medications Dose Ordered Sig/Tash Route Start Time Stop Time Status Last Admin Dose Admin Sodium Chloride 1,000 ml @ 60 mls/hr [id number] IV 12/26/24 22:45 12/26/24 23:04 60 MLS/HR Acetaminophen 650 mg Q6HP PRN PO 12/26/24 22:45 Morphine Sulfate 2 mg Q4HPRN PRN IV 12/26/24 22:45 Enoxaparin Sodium 40 mg DAILY SC 12/27/24 10:00 UNV Nitroglycerin 0.4 mg Q5MINP PRN SL 12/26/24 22:45 Morphine Sulfate 2 mg Q30M PRN IV 12/26/24 22:45 Cefepime HCl 50 ml @ 12.5 mls/hr Q12HR IV 12/26/24 23:00 12/26/24 23:30 12.5 MLS/HR Vancomycin HCl 0 ml @ 0 mls/hr UD IV 12/26/24 23:00 UNV Diagnostic Test (Pha) 1 strip IQ4HR 12/27/24 00:00 12/27/24 00:16 1 STRIP Insulin Human Regular IQ4HR SC 12/27/24 00:00 Dextrose 50 ml UD PRN IV 12/26/24 23:15 Enoxaparin Sodium 30 mg DAILY SC 12/27/24 10:00 Clopidogrel Bisulfate 75 mg DAILY PO 12/27/24 10:00 Atorvastatin Calcium 40 mg HS PO 12/27/24 22:00 Exam Vital Signs Vital Signs Date Time Temp Pulse Resp B/P (MAP) Pulse Ox O2 Delivery O2 Flow Rate FiO2 12/27/24 01:00 94 11 132/66 (88) 100 12/26/24 23:00 98.1 98.1 12/26/24 20:45 Nasal Cannula* 4 36 General Appearance: Other (AOX1) HEENT: Atraumatic, PERRLA Respiratory: Clear to auscultation Cardiovascular: Regular rate, Normal S1 Abdominal: Normal bowel sounds, Soft Extremities: Other (NUMEROUS PRESSURE ULCERS, THE BIGGEST ONE IN THE SACRAL AREA UNSTAGEABLE ) Neuro: Other (left side weakness ) Psych/Mental Status: Other (aox1) Labs/Xrays Labs Test 12/26/24 22:51 12/26/24 21:30 12/26/24 21:24 12/26/24 20:49 Range/Units Lactic Acid Level 2.3 *H 0.4-2.0 mmol/L Urine Color Yellow Yellow Urine Clarity Turbid H Clear Urine pH 5.5 5.0-9.0 Urine Specific [place] 1.026 1.001-1.035 Urine Protein 1+ H Negative Urine Ketones Negative Negative Urine Blood 3+ H Negative /uL Urine Nitrite Negative Negative Urine Bilirubin Negative Negative Urine Urobilinogen Normal Negative mg/dL Urine Leukocyte Esterase Negative Negative /uL Urine RBC 1 0 - 4 /hpf Urine Microscopic WBC 1 0-5 /HPF Urine Squamous Epithelial Cells Few <5 /hpf Urine Bacteria None seen None Seen /hpf Urine Glucose Normal Normal mg/dL Urine Opiates Screen Neg NEGATIVE Urine Fentanyl Screen Pos NEGATIVE Urine Barbiturates Screen Neg NEGATIVE Urine Phencyclidine Screen Neg NEGATIVE Urine Amphetamines Screen Neg NEGATIVE Urine Benzodiazepines Screen Neg NEGATIVE Urine Cocaine Screen Neg NEGATIVE Urine Cannabinoids Screen Pos NEGATIVE Influenza Type A Antigen Negative Negative Influenza Type B Antigen Negative Negative SARS-CoV-2 Antigen (Rapid) Negative NEGATIVE White Blood Count 20.0 H 4.4-10.8 10^3/uL Red Blood Count 4.77 4.0-5.20 10^6/uL Hemoglobin 13.8 12.2-16.2 g/dL Hematocrit 42.1 36.0-46.0 % Mean Corpuscular Volume 88.2 80.0-100.0 fL Mean Corpuscular Hemoglobin 28.9 28.0-32.0 pg Mean Corpuscular Hemoglobin Concent 32.8 32.0-36.0 g/dL Red Cell Distribution Width 13.9 11.8-14.3 % Platelet Count 578 H 140-450 10^3/uL Mean Platelet Volume 8.1 6.9-10.8 fL Neutrophils (%) (Auto) 83.6 H 37.0-80.0 % Lymphocytes (%) (Auto) 9.3 L 10.0-50.0 % Monocytes (%) (Auto) 6.5 0.0-12.0 % Eosinophils (%) (Auto) 0.0 0.0-7.0 % Basophils (%) (Auto) 0.6 0.0-2.0 % Neutrophils # (Auto) 16.8 H 1.6-8.6 10 ^3/uL Lymphocytes # (Auto) 1.9 0.4-5.4 10 ^3/uL Monocytes # (Auto) 1.3 0-1.3 10 ^3/uL Eosinophils # (Auto) 0 0-0.8 10 ^3/uL Basophils # (Auto) 0.1 0-0.2 10 ^3/uL Nucleated Red Blood Cells 0.1 % Sodium Level 147 H 136-145 mmol/L Potassium Level 4.5 3.5-5.1 mmol/L Chloride Level 111 H 98-107 mmol/L Carbon Dioxide Level 24 20-31 mmol/L Anion Gap 12 5-15 Blood Urea Nitrogen 64 H 9-23 mg/dL Creatinine 1.75 H 0.550-1.02 mg/dL Glomerular Filtration Rate Calc 31 >90 mL/min BUN/Creatinine Ratio 36.6 H 10.0-20.0 Serum Glucose 205 H 74-106 mg/dL Calcium Level 10.1 8.7-10.4 mg/dL Magnesium Level 2.0 1.6-2.6 mg/dL Total Bilirubin 0.4 0.2-1.0 mg/dL Aspartate Amino Transferase (AST) 382 H 13-40 U/L Alanine Aminotransferase (ALT) 127 H 7-40 U/L Alkaline Phosphatase 82 46-116 U/L Troponin I High Sensitivity 25 </=34 ng/L B-Type Natriuretic Peptide 25.60 0-100 pg/mL Total Protein 6.5 5.7-8.2 g/dL Albumin 3.9 3.2-4.8 g/dL Lipase 47 12-53 U/L Thyroid Stimulating Hormone (TSH) 0.81 0.55-4.78 uIU/mL Plasma/Serum Blood Alcohol 3.9 <10 mg/dL Assessment/Plan Assessment/Plan #Septic shock due to sacral wound infection - resolving-: patient needed epinephrine prior admission #Acute metabolic encephalopathy due to sepsis and ischemic stroke #Subacute ischemic stroke #Acute on Chronic hypoxic respiratory failure #End-stage Alzheimer dementia #Type 2 diabetes mellitus, hemoglobin A1c 7.7 on 11/16/2024 #PHILLIP due to VMN #Mild Hyponatremia #Tranasaminits #Diabetes #History of CAD s/p stent placement #Hypertension #Asthma Admit Telemetry NPO for now Swallow evaluation: consider restart puree diet after O2 4LT NS 60cc/h cefepime IV vancomycin IV Clopidogrel 75 mg Hold on Atorvastatin 40 mg due transaminitis ISS Wound consult Blood, sputum, urine and wound culture ordered Enoxaparin SC Protonix IV daily Case discussed with Dr Le Code status: full code Plan discussed with: Patient, Other (rn ) My Orders Orders - ANGELA CEDILLO Procedure Category Date Status Time Admit ADMIT 12/26/24 Transmitted 22:35 Code Status CODE 12/26/24 Transmitted 22:35 Vital Signs [place] 12/26/24 In Process 22:35 Review Orders With PASQUALE 12/26/24 In Process Adm. 22:35 Npo (Nothing By DIET 12/27/24 Transmitted Mouth) Diet Breakfast Sodium Chloride 0.9% PHA 12/26/24 In Process 22:45 Acetaminophen Tablet PHA 12/26/24 In Process (Tylenol Tablet) 22:45 Notify Md Of Changes PASQU[place] 12/26/24 In Process From Base 22:35 Advance Directive [place] 12/26/24 In Process 22:35 Routine Bacterial YASSINE 12/26/24 Logged Culture 22:35 Patient Condition ORDERS 12/26/24 Transmitted 22:35 Allergies [place] 12/26/24 In Process 22:35 Morphine Sulfate PHA 12/26/24 In Process Injection 22:45 Nitroglycerin PHA 12/26/24 In Process Sublingual (Ntrostat 22:45 Morphine Sulfate PHA 12/26/24 In Process Injection 22:45 Oxygen By Nasal RT 12/26/24 Transmitted Cannula 22:35 Stat Ekg For Chest PASQUALE 12/26/24 In Process Pain 22:35 Notify Of Changes PASQUALE 12/26/24 In Process From Base 22:35 Broadband Installer For PASQUALE 12/26/24 In Process 24 Hours 22:35 Emergency Dysrhythmia PASQU[place] 12/26/24 In Process Protocol 22:35 Rhythm Strips Once PASQUALE 12/26/24 In Process Every Shift 22:35 Cefepime 1gm/ 50ml PHA 12/26/24 In Process (Maxipime 1gm/50ml) 23:00 Vancomycin Per PHA 12/26/24 Pending Pharmacy 23:00 Respiratory Culture YASSINE 12/26/24 Logged W/ Gs 22:58 Urine Bacterial YASSINE 12/26/24 In Process Culture 22:58 Glucose Blood PHA 12/27/24 In Process (Accu-Chek Comfort 00:00 Insulin R (Human) PHA 12/27/24 In Process (Insulin R) 00:00 Dextrose 50% Syringe PHA 12/26/24 In Process 23:15 Enoxaparin Sodium PHA 12/27/24 In Process (Lovenox) 10:00 Complete Blood Count LAB 12/27/24 Logged 04:00 Ammonia LAB 12/27/24 Logged 04:00 Comprehensive LAB 12/27/24 Logged Metabolic Panel 04:00 Magnesium LAB 12/27/24 Logged 04:00 Phosphorus LAB 12/27/24 Logged 04:00 PTPTT LAB 12/27/24 Logged 04:00 Thyroid Stimulating LAB 12/27/24 Logged Hormone 04:00 Clopidogrel Bisulfate PHA 12/27/24 In Process (Plavix) 10:00 Atorvastatin (Lipitor) PHA 12/27/24 In Process 22:00 * Wound Consult CONS 12/27/24 Transmitted Date of Service: December 26, 2024 Billing Provider: ALYSON LE MD Common Visit Codes: [id number] INP/OBS CARE (HIGH) Secondary Visit Codes: [id number] CARE PLAN 30 MINUTES ANGELA CEDILLO RESIDENT December 27, 2024 03:25
--- NOTE | 2024-12-27 06:18 | ECG ---
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
[2024-12-27 07:10] LABS: Base Excess -0.1 mmol/L (-2.0-3.0)
[2024-12-27 09:26] LABS: Basophils # (auto) 0.2 10 ^3/uL (0-0.2); Basophils % (auto) 0.9 % (0.0-2.0); Eosinophils # (auto) 0 10 ^3/uL (0-0.8); White Blood Cell 19.3 10^3/uL (4.4-10.8)
[2024-12-27 09:28] LABS: Eosinophils % (auto) 0.1 % (0.0-7.0); Hematocrit 39.1 % (36.0-46.0); Lymphocytes # (auto) 2.4 10 ^3/uL (0.4-5.4); Lymphocytes % (auto) 12.4 % (10.0-50.0); Mean Corpuscular Hemoglobin 29.2 pg (28.0-32.0); Mean Corpuscular Hgb Conc. 33.3 g/dL (32.0-36.0); Mean Corpuscular Volume 87.8 fL (80.0-100.0); Monocytes # (auto) 1.4 10 ^3/uL (0-1.3); Monocytes % (auto) 7.4 % (0.0-12.0); Neutrophils # (auto) 15.3 10 ^3/uL (1.6-8.6); Neutrophils % (auto) 79.2 % (37.0-80.0); Platelet Count (auto) 556 10^3/uL (140-450); Red Blood Cells 4.46 10^6/uL (4.0-5.20); Red Cell Distribution Width 14.2 % (11.8-14.3)
[2024-12-27 09:40] LABS: INR 1.36 (0.9-1.15); Partial Thromboplastin Time 25.6 SEC (24.5-34.5)
[2024-12-27 09:42] LABS: Albumin 3.7 g/dL (3.2-4.8); Alkaline Phosphatase 77 U/L (46-116); Anion Gap 11 (5-15); BUN/Creatinine Ratio 54.2 (10.0-20.0); Calcium 9.6 mg/dL (8.7-10.4); Carbon Dioxide 24 mmol/L (20-31); Magnesium 1.8 mg/dL (1.6-2.6); Potassium 4.1 mmol/L (3.5-5.1); Total Protein 6.2 g/dL (5.7-8.2)
[2024-12-27 09:43] LABS: Phosphorus 2.7 mg/dL (2.4-5.1)
[2024-12-27 09:50] LABS: Alanine Aminotransferase 119 U/L (7-40); Aspartate Aminotransferase 321 U/L (13-40); Bilirubin, Total 0.3 mg/dL (0.2-1.0); Blood Urea Nitrogen 52 mg/dL (9-23); Chloride 115 mmol/L (98-107); Glucose 120 mg/dL (74-106); Sodium 150 mmol/L (136-145)
[2024-12-27] MEDS ORDERED: ENOXAPARIN SOD 40 MG/0.4 ML SYRINGE SC SCH (10:00)
[2024-12-27] MEDS: CLOPIDOGREL BISULFATE 75 MG TAB PO SCH (10:23)
[2024-12-27] MEDS: ENOXAPARIN SOD 30 MG/0.3 ML SYRINGE SC SCH (10:23)
[2024-12-27] MEDS: PANTOPRAZOLE 40 MG/10 ML VIAL INJ IV SCH (10:23)
--- NOTE | 2024-12-27 11:18 | DVHPN2 ---
Subjective The patient is seen and examined at bedside. The patient is very sleepy. Reviewed: Care Plan, H&P, Labs, Medications, Previous Orders, Radiology Changes from previous H/P or p: No Changes Objective Vitals Vital Signs Date Time Temp Pulse Resp B/P (MAP) Pulse Ox O2 Delivery O2 Flow Rate FiO2 12/27/24 09:00 99.8 96 19 145/66 (92) 97 99.8 12/27/24 08:00 Simple Mask* 8 60 Intake/Output Intake and Output 12/27/24 07:00 Intake Total 1717.5 ml Balance 1717.5 ml Intake IV Total 1717.5 ml General Appearance: Alert, No acute distress HEENT: Atraumatic, PERRLA, EOMI, Mucous membr. moist/pink Lungs: Clear to auscultation, Normal air movement Cardiovascular: Regular rate, Normal S1, Normal S2, No murmurs, Gallops, Rubs Abdomen: Normal bowel sounds, Soft, No tenderness Neuro: Cranial nerves 3-12 NL Psych/Mental Status: Mental status NL Medications Current Medications Medications Dose Ordered Sig/Tash Route Start Time Stop Time Status Last Admin Dose Admin Acetaminophen 650 mg Q6HP PRN PO 12/26/24 22:45 Morphine Sulfate 2 mg Q4HPRN PRN IV 12/26/24 22:45 Enoxaparin Sodium 40 mg DAILY SC 12/27/24 10:00 UNV Nitroglycerin 0.4 mg Q5MINP PRN SL 12/26/24 22:45 Morphine Sulfate 2 mg Q30M PRN IV 12/26/24 22:45 Cefepime HCl 50 ml @ 12.5 mls/hr Q12HR IV 12/26/24 23:00 12/27/24 10:22 12.5 MLS/HR Vancomycin HCl 0 ml @ 0 mls/hr UD IV 12/26/24 23:00 Diagnostic Test (Pha) 1 strip IQ4HR 12/27/24 00:00 12/27/24 08:00 1 STRIP Insulin Human Regular IQ4HR SC 12/27/24 00:00 Dextrose 50 ml UD PRN IV 12/26/24 23:15 Enoxaparin Sodium 30 mg DAILY SC 12/27/24 10:00 12/27/24 10:23 30 MG Clopidogrel Bisulfate 75 mg DAILY PO 12/27/24 10:00 12/27/24 10:23 75 MG Pantoprazole Sodium 40 mg DAILY IV 12/27/24 10:00 12/27/24 10:23 40 MG Laboratory Results Laboratory Tests 12/27/24 09:11 Chemistry Test 12/26/24 20:49 12/27/24 09:11 Albumin 3.9 g/dL (3.2-4.8) 3.7 g/dL (3.2-4.8) Calcium Level 10.1 mg/dL (8.7-10.4) 9.6 mg/dL (8.7-10.4) Magnesium Level 2.0 mg/dL (1.6-2.6) 1.8 mg/dL (1.6-2.6) Total Protein 6.5 g/dL (5.7-8.2) 6.2 g/dL (5.7-8.2) Phosphorus Level 2.7 mg/dL (2.4-5.1) Coagulation Test 12/27/24 09:11 Prothrombin Time 14.0 sec (9.3-11.8) H Prothrombin Time INR 1.36 (0.9-1.15) H Activated Partial Thromboplast Time 25.6 SEC (24.5-34.5) Lipid panel Test 12/26/24 20:49 Lipase 47 U/L (12-53) Cardiac Markers Test 12/26/24 20:49 B-Type Natriuretic Peptide 25.60 pg/mL (0-100) LFT Test 12/26/24 20:49 12/27/24 09:11 Alanine Aminotransferase (ALT) 127 U/L (7-40) H 119 U/L (7-40) H Alkaline Phosphatase 82 U/L (46-116) 77 U/L (46-116) Aspartate Amino Transferase (AST) 382 U/L (13-40) H 321 U/L (13-40) H Total Bilirubin 0.4 mg/dL (0.2-1.0) 0.3 mg/dL (0.2-1.0) HgA1c, TSH Test 12/26/24 20:49 12/27/24 09:11 Thyroid Stimulating Hormone (TSH) 0.81 uIU/mL (0.55-4.78) 0.39 uIU/mL (0.55-4.78) L Urinalysis Test 12/26/24 21:30 Urine Color Yellow (Yellow) Urine Clarity Turbid (Clear) H Urine pH 5.5 (5.0-9.0) Urine Specific [place] 1.026 (1.001-1.035) Urine Protein 1+ (Negative) H Urine Ketones Negative (Negative) Urine Blood 3+ /uL (Negative) H Urine Nitrite Negative (Negative) Urine Bilirubin Negative (Negative) Urine Urobilinogen Normal mg/dL (Negative) Urine Leukocyte Esterase Negative /uL (Negative) Urine RBC 1 /hpf (0 - 4) Urine Microscopic WBC 1 /HPF (0-5) Urine Squamous Epithelial Cells Few /hpf (<5) Urine Bacteria None seen /hpf (None Seen) Urine Glucose Normal mg/dL (Normal) Blood Gas Results Test 12/27/24 07:01 Arterial Blood pH 7.456 (7.350-7.450) FiO2 % 45.0 Labs and/or images reviewed: Labs reviewed by me Assessment/Plan Assessment/Plan #Septic shock due to sacral wound infection - resolving-: patient needed epinephrine prior admission #Acute metabolic encephalopathy due to sepsis and ischemic stroke #Subacute ischemic stroke #Acute on Chronic hypoxic respiratory failure #End-stage Alzheimer dementia #Type 2 diabetes mellitus, hemoglobin A1c 7.7 on 11/16/2024 #PHILLIP due to VMN #Mild Hyponatremia #Tranasaminits #Diabetes #History of CAD s/p stent placement #Hypertension #Asthma Continuing current management. Continuing with sliding scale insulin. Her blood pressure is low today. If continuing without respond to IV fluid bolus anticipate to transfer the patient to [facility]. The patient is more altered today we will order an MRI of brain because of her recent CVA just November 21, 2024 Continuing with nebulizer Continuing with IV antibiotic Prognosis guarded This medical document was created using an electronic medical record system with M[employer] direct computerized dictation system. Although this document has been carefully reviewed, there may still be some phonetic and typographical errors. These areas are purely typographical due to imperfections of the software programs, and do not reflect any compromise in the patient's medical care. Plan discussed with: Patient, Daughter Date of Service: December 27, 2024 Billing Provider: LEIGH JOHN MD Common Visit Codes: [id number] INP/OBS CARE(HIGH) LEIGH JOHN MD December 27, 2024 11:18
--- NOTE | 2024-12-27 11:48 | DVH ---
CHEST RADIOGRAPH Indication: dyspnea Technique: Single frontal view of the chest was obtained Comparison: XY CHEST XRAY 1 VIEW on DOS: 12/26/24, XY CHEST PORTABLE on DOS: 12/12/24, XY CHEST XRAY 1 V IEW on DOS: 11/15/24 FINDINGS: Lines and Tubes: None Lungs: No focal consolidation. Pleura: No effusion. No pneumothorax. Cardiomediastinal contours: Unremarkable Bones: No acute osseous abnormality. IMPRESSION: No acute cardiopulmonary disease.
[2024-12-27] MEDS: PHENYLEPHRINE IV 250 ML IV ONE (18:38)
[2024-12-27] MEDS: SODIUM CHLORIDE 0.9% 1,000 ML IV ONE (18:45)
[2024-12-27] MEDS: PHENYLEPHRINE IV 250 ML IV SCH (19:15)
[2024-12-27 19:18] LABS: Base Excess 0.6 mmol/L (-2.0-3.0)
--- NOTE | 2024-12-27 19:40 | DVH ---
CT STROKE CTH INDICATION: COMPARISON: CT HEAD WITHOUT CONTRAST on DOS: 12/26/24, CT HEAD WITHOUT CONTRAST on DOS: 12/12/24, CT HEA D WITHOUT CONTRAST on DOS: 12/12/24 TECHNIQUE: CT of the head without intravenous contrast. RADIATION DOSE: CTDIvol: 54.43 mGy, DLP: 1004.66 mGy*cm FINDINGS: Again noted is large late subacute right MCA territory infarct involving the right temporal lobe, in sula, basal ganglia, frontal and parietal lobes which was noted to be acute on the MRI study from 11/23. There is multifocal cortical hyperdensity within this infarct consistent with petechial hemor rhage and/or laminar necrosis. No significant mass effect. No extra-axial collection, mass effect, midline shift, herniation or hydrocephalus. Mild chronic whit e matter microvascular ischemic change. [id number]-[id number] ventricular enlargement related to cerebral volume loss. Visualized paranasal sinuses and mastoid air cells are clear. Soft tissues and osseous structures are unremarkable. IMPRESSION: No change compared to the prior CT scan from 12/26/24. Large right MCA territory infarct which was not ed to be acute on the MRI study from 12/13/2024. Multifocal cortical hyperdensity again noted within t his infarct which given the stability is more in keeping with laminar necrosis rather than petechial hemorrhage. No mass effect or other new abnormality.
[2024-12-27] MEDS ORDERED: ATORVASTATIN 20 MG TAB PO SCH (22:00)
[2024-12-27] MEDS: D5W/SOD CHL 0.45% 1,000 ML IV ONE (22:50)
[2024-12-28] VITALS (19 sets, daily range): BP systolic 125–167; BP diastolic 53–125; PULSE 68–107; RESP 14–25; TEMP 97.6–99.4; O2SAT 83–100
[2024-12-28 05:07] LABS: Basophils # (auto) 0.1 10 ^3/uL (0-0.2); Basophils % (auto) 0.5 % (0.0-2.0); Eosinophils # (auto) 0 10 ^3/uL (0-0.8); Hemoglobin 12.8 g/dL (12.2-16.2); Nucleated Red Blood Cells % 0.1 %
[2024-12-28 05:09] LABS: Eosinophils % (auto) 0.2 % (0.0-7.0); Hematocrit 38.7 % (36.0-46.0); Lymphocytes # (auto) 2.1 10 ^3/uL (0.4-5.4); Lymphocytes % (auto) 13.6 % (10.0-50.0); Mean Corpuscular Hemoglobin 29.2 pg (28.0-32.0); Mean Corpuscular Hgb Conc. 33.1 g/dL (32.0-36.0); Mean Corpuscular Volume 88.3 fL (80.0-100.0); Monocytes # (auto) 1.2 10 ^3/uL (0-1.3); Monocytes % (auto) 7.7 % (0.0-12.0); Neutrophils # (auto) 12.3 10 ^3/uL (1.6-8.6); Platelet Count (auto) 491 10^3/uL (140-450); Red Blood Cells 4.38 10^6/uL (4.0-5.20); Red Cell Distribution Width 14.3 % (11.8-14.3); White Blood Cell 15.7 10^3/uL (4.4-10.8)
[2024-12-28 05:48] LABS: Anion Gap 12 (5-15); Calcium 9.4 mg/dL (8.7-10.4); Carbon Dioxide 22 mmol/L (20-31)
[2024-12-28 05:53] LABS: BUN/Creatinine Ratio 60.3 (10.0-20.0)
[2024-12-28 06:02] LABS: Blood Urea Nitrogen 38 mg/dL (9-23); Chloride 115 mmol/L (98-107); Glucose 195 mg/dL (74-106); Magnesium 1.5 mg/dL (1.6-2.6); Sodium 149 mmol/L (136-145)
[2024-12-28] MEDS ORDERED: cefTRIAXone 1GM/50ML D5W 50 ML IV ONE (06:15)
[2024-12-28 06:16] LABS: Base Excess 1.7 mmol/L (-2.0-3.0)
--- NOTE | 2024-12-28 06:44 | DVH ---
EXAM: XR Chest, 1 View CLINICAL INDICATION: Interval changes TECHNIQUE: Frontal view of the chest. COMPARISON: XY CHEST XRAY 1 VIEW on DOS: 12/27/24, XY CHEST XRAY 1 VIEW on DOS: 12/26/24, XY CHEST PORT ABLE on DOS: 12/12/24, XY CHEST XRAY 1 VIEW on DOS: 11/15/24 FINDINGS: LUNGS AND PLEURAL SPACES: Unremarkable. No consolidation. No pneumothorax. HEART: Unremarkable. No cardiomegaly. MEDIASTINUM: Unremarkable. Normal mediastinal contour. BONES/JOINTS: Unremarkable. No acute fracture. OTHER FINDINGS: . IMPRESSION: No acute cardiopulmonary process.
[2024-12-28] MEDS: NOREPINEPHRINE 8 MG/250ML KIT 250 ML IV SCH (06:45)
[2024-12-28] MEDS: PIPERACILLIN-TAZOB 3.375GM 100 ML IV ONE (07:08)
[2024-12-28] MEDS: D5W 5% 1,000 ML IV SCH (07:11)
[2024-12-28] MEDS ORDERED: cefTRIAXone 1GM/50ML D5W 50 ML IV SCH (09:00)
--- NOTE | 2024-12-28 09:11 | DVHINCON2 ---
Date of service: December 28, [address] Dunn Reason for Consultation ALOC History of Present Illness Ms. Sims is a 74 years old lady with a history of hypertension, diabetes, recent stroke with left-sided deficits, dementia, she was brought to the [facility] [place] on 12/26/24 with a chief complaint of altered mental status. At this time, she is awake, she talks, oriented to person only, but with reasonable social skills, I saw her on 12/13/2024 for stroke. She was recently discharged from [facility] for altered mental status, general weakness, pneumonia. At home, the patient was found to be mentally altered on 12/26/2024 and rolled brought to the hospital In the hospital, the patient was found to have acute kidney failure, dehydration, hyponatremia, she was has pressure sore She has a history of dementia/Alzheimer disease, she on Aricept 10 mg daily, memantine 10 mg b.i.d., Remeron 45 mg at bedtime as needed, trazodone 150 mg to 200 mg at bedtime as needed She was recently discharged from the [facility] for acute stroke with resultant left homonymous hemianopsia, left hemiparesis Blood culture, 12/27/2024: UDS, 12/26/2024: Fentanyl, cannabinoids Plasma alcohol, 12/26/2024: 3.9 Urinalysis, 12/26/2024: WBC: 1, urine leukocyte esterase: Negative WBC/HB/PLT/MCV, 12/13/2024: 15.7/12.1/566/89.3 Na, 12/26/2024: 147, 12/27/24:150, 12/28/2024: 149 BUN/CR, 12/26/2024: 64/1.75 12/27/2024: 52/0.96, 12/28/2024: 38/0.63 Lactic acid, 12/26/24: 3, 2.3, 12/27/24: 1.3 TBI/AST/ALT/AP, 12/27/2024: 0.3/321/119/77 TG/HDL/LDL/HDL, 07/2024: 190/200/139/44 VITAMIN B12, 10/2024: 1408 TSH, 12/27/2024: 0.39 Chest x-ray, 12/28/2024: No acute cardiopulmonary process. CT head, 12/12/2024: No acute intracranial abnormality (right MCA encephalomalacia) CT head, 12/27/2024: No change compared to the prior CT scan from 12/26/24. Large right MCA territory infarct which was noted to be acute on the MRI study from 12/13/2024. Multifocal cortical hyperdensity again noted within this infarct which given the stability is more in keeping with laminar necrosis rather than petechial hemorrhage. No mass effect or other new abnormality MRI head, 12/13/2024: 1. Large acute right MCA territorial infarct. There is walls lcal effacement but no mass effect on the right lateral ventricle and no midline shift noted. Evaluation is very limited due to motion degradation. Sulcal calcification / hemosiderin deposit is poorly evaluated due to motion degradation and limited sequences in this fast MRI. 2. Small bilateral mastoid effusions. (I have reviewed the films, and compared to her CT brain, I think th is is the same stroke she sustained recently before she went to the [facility]) Past Medical History Hypertension, diabetes, stroke, Alzheimer disease Past Surgical History C-sections, hysterectomy Family History: FH: brain cancer G8 FATHER Hypertension G8 MOTHER Ischemic heart disease G8 MOTHER Family History Hypertension, heart disease, migraine headache, anxiety Social History Smoker: Non-Smoker Alcohol: Denies ETOH Use Drugs: Marijuana Lives In: Home Allergies: Coded Allergies: Aspirin (Verified Allergy, Unknown, 01/28/23) Sulfa Antibiotics (Unverified Allergy, Unknown, 12/26/24) Home Meds Reported Medications Cholecalciferol (VITAMIN D3) 2,000 Unit Tab, 50 MCG PO DAILY, TAB 12/14/24 Tramadol Hcl (Tramadol Hcl) 50 Mg Tab, 1 TAB PO BIDPRN PRN for PAIN SCALE 7 THRU 10 12/14/24 Rimegepant Sulfate (Nurtec) 75 Mg Tab, 4 MG PO EOD 12/14/24 Metformin Hydrochloride (Metformin Hcl) 1,000 Mg Tab, 1 TAB PO BID 12/14/24 Mirtazapine (Mirtazapine Oral Disintegrating Tablet) 45 Mg Tab, 1 TAB PO HS 12/14/24 Calcium Carbonate (Calcium) 600 Mg Tab, 600 MG PO BID, TAB 12/14/24 Trazodone Hcl (Trazodone Hcl) 100 Mg Tab, 1.5-2 TAB PO HS 12/14/24 Cyanocobalamin (Vitamin B-12) 1,000 Mcg Tab, 1 TAB PO DAILY 12/14/24 Memantine Hydrochloride (Memantine HCl) 10 Mg Tab, 1 TAB PO BID 12/14/24 Donepezil Hydrochloride (Donepezil Hydrochloride) 10 Mg Tab, 1 TAB PO DAILY 12/14/24 Metaxalone (Metaxalone) 800 Mg Tab, 1 TAB PO TID 12/14/24 Labetalol Hcl (Labetalol Hcl) 100 Mg Tab, 1 TAB PO BID 12/14/24 Insulin Lispro (Insulin Lispro Kwikpen) 100 Unit/Ml Inj, SC PER SLIDING SCALE 12/14/24 Insulin Glargine (Lantus Solostar) 100 Unit/Ml Inj, 35 UNITS SC DAILY 12/14/24 Benazepril Hcl (Benazepril Hcl) 40 Mg Tab, 1 TAB PO DAILY 12/14/24 Atorvastatin Calcium (ATORVASTATIN CALCIUM) 40 Mg Tab, 1 TAB PO DAILY 12/14/24 Current Medications Current Medications Medications (Trade) Dose Ordered Sig/Tash Route PRN Reason Start Time Stop Time Status Last Admin Enoxaparin Sodium (Lovenox) 40 mg DAILY SC 12/27/24 10:00 UNV Enoxaparin Sodium (Lovenox) 30 mg DAILY SC 12/27/24 10:00 12/27/24 10:23 Clopidogrel Bisulfate (Plavix) 75 mg DAILY PO 12/27/24 10:00 Atorvastatin Calcium (Lipitor) 40 mg HS PO 12/27/24 22:00 12/27/24 03:22 DC Pantoprazole Sodium (Protonix) 40 mg DAILY IV 12/27/24 10:00 12/27/24 10:23 Phenylephrine HCl 250 ml @ 30 mls/hr Q8H20M IV 12/27/24 19:15 12/28/24 06:52 DC 12/28/24 06:01 Dextrose 1,000 ml @ 75 mls/hr [id number] IV 12/28/24 06:15 12/28/24 07:11 Ceftriaxone Sodium 50 ml @ 100 mls/hr DAILY@09 IV 12/28/24 09:00 12/28/24 06:33 DC Piperacillin Sod/ Tazobactam Sod 100 ml @ 25 mls/hr Q8HR IV 12/28/24 14:00 Norepinephrine Bitartrate 250 ml @ 1.875 mls/ hr Q24H IV 12/28/24 06:45 Review of Systems As above, the other systems are negative Vital Signs Vital Signs Date Time Temp Pulse Resp B/P (MAP) Pulse Ox O2 Delivery O2 Flow Rate FiO2 12/28/24 08:00 97.6 83 18 146/125 (132) 97 97.6 12/27/24 22:33 Simple Mask* 8 60 Physical Exam GENERAL EXAM: General: the patient is well developed and nourished. No acute distress. HEENT: Normocephalic, neck is supple, no carotid bruits. No mass. RESPIRATORY: Normal respiratory effort with symmetrical lung expansion. Lungs clear to auscultation. CARDIOVASCULAR: Regular rate and rhythm with no murmurs. S1, S2. ABDOMEN: Soft, nontender, normal bowel sound NEUROLOGICAL: MENTAL STATUS: Awake and alert. Oriented to person SPEECH, LANGUAGE, HIGHER CORTICAL FUNCTION: no aphasia or dysathria. CRANIAL NERVES: #2: Left homonymous hemianopsia. The optic discs were sharp. #3,4,6: Pupils are equal, round and reactive. EOMs full and conjugate. #5: Facial sensation intact in all three divisions bilaterally. Mandibular strength intact. #7: Facial muscles symmetrical and strength intact. #8: Hearing grossly normal to voice. #9,10: Uvula and soft palate rise in the midline. Swallow and voice are normal. #11: Trapezius and sternomastoid strength intact bilaterally. #12: Tongue midline. No fasciculations or atrophy. SENSATION: Sensation to touch and pinprick is fine MOTOR: Normal tone in the upper and lower extremity. Normal muscle bulk. No fasciculations. No abnormal movements or posturing. Muscle strength of the major groups in the right extremities is 5/5. Muscle strength of the major groups in the right extremities is: Upper: 0/5, lower: 2/5. REFLEXES: Deep tendon reflexes are symmetrical. No pathological reflexes. CEREBELLAR/COORDINATION: Deferred. GAIT/STATION: deferred. Labs/Diagnostic Data Labs Test 12/28/24 07:36 12/28/24 06:10 12/28/24 04:50 5/6/25 11:24 Range/Units POC Glucose 143 H 70-106 mg/dl Blood Gas Specimen Type Arterial Blood Gas Sample Site Left radial Blood Gas Patient Temperature 37.0 Arterial Blood Date Drawn [id number] Arterial Blood pH 7.497 H 7.350-7.450 Arterial Blood Partial Pressure CO2 32.0 32.0-45.0 mmHg Arterial Blood Partial Pressure O2 90.7 83.0-108.0 mmHg Arterial Blood HCO3 24.2 21.0-28.0 mmol/L Arterial Blood Oxygen Saturation 96.9 94.0-98.0 % Arterial Blood Base Excess 1.7 -2.0-3.0 mmol/L Arterial Blood Oxyhemoglobin 96.2 94.0-98.0 % Arterial Blood Carboxyhemoglobin 0.3 L 0.5-1.5 % Arterial Blood Methemoglobin 0.4 0.0-1.5 % Supa Test Yes Blood Gas Total Hemoglobin 13.40 12.0-16.0 g/dL Blood Gas Liter Flow 8.00 Blood Gas Modality Mask - simple FiO2 % 50.0 White Blood Count 15.7 H 4.4-10.8 10^3/uL Red Blood Count 4.38 4.0-5.20 10^6/uL Hemoglobin 12.8 12.2-16.2 g/dL Hematocrit 38.7 36.0-46.0 % Mean Corpuscular Volume 88.3 80.0-100.0 fL Mean Corpuscular Hemoglobin 29.2 28.0-32.0 pg Mean Corpuscular Hemoglobin Concent 33.1 32.0-36.0 g/dL Red Cell Distribution Width 14.3 11.8-14.3 % Platelet Count 491 H 140-450 10^3/uL Mean Platelet Volume 8.1 6.9-10.8 fL Neutrophils (%) (Auto) 78.0 37.0-80.0 % Lymphocytes (%) (Auto) 13.6 10.0-50.0 % Monocytes (%) (Auto) 7.7 0.0-12.0 % Eosinophils (%) (Auto) 0.2 0.0-7.0 % Basophils (%) (Auto) 0.5 0.0-2.0 % Neutrophils # (Auto) 12.3 H 1.6-8.6 10 ^3/uL Lymphocytes # (Auto) 2.1 0.4-5.4 10 ^3/uL Monocytes # (Auto) 1.2 0-1.3 10 ^3/uL Eosinophils # (Auto) 0 0-0.8 10 ^3/uL Basophils # (Auto) 0.1 0-0.2 10 ^3/uL Nucleated Red Blood Cells 0.1 % Sodium Level 149 H 136-145 mmol/L Potassium Level 4.0 3.5-5.1 mmol/L Chloride Level 115 H 98-107 mmol/L Carbon Dioxide Level 22 20-31 mmol/L Anion Gap 12 5-15 Blood Urea Nitrogen 38 #H 9-23 mg/dL Creatinine 0.63 0.550-1.02 mg/dL Glomerular Filtration Rate Calc 94 >90 mL/min BUN/Creatinine Ratio 60.3 H 10.0-20.0 Serum Glucose 195 H 74-106 mg/dL Calcium Level 9.4 8.7-10.4 mg/dL Magnesium Level 1.5 L 1.6-2.6 mg/dL Random Vancomycin Level 4.3 L 5-10 ug/mL Lactic Acid Level 1.3 0.4-2.0 mmol/L Test 12/27/24 09:11 12/26/24 21:30 12/26/24 21:24 12/26/24 20:49 Range/Units Prothrombin Time 14.0 H 9.3-11.8 sec Prothrombin Time INR 1.36 H 0.9-1.15 Activated Partial Thromboplast Time 25.6 24.5-34.5 SEC Phosphorus Level 2.7 2.4-5.1 mg/dL Total Bilirubin 0.3 0.2-1.0 mg/dL Aspartate Amino Transferase (AST) 321 H 13-40 U/L Alanine Aminotransferase (ALT) 119 H 7-40 U/L Alkaline Phosphatase 77 46-116 U/L Ammonia < 10 L 11-32 umol/L Total Protein 6.2 5.7-8.2 g/dL Albumin 3.7 3.2-4.8 g/dL Thyroid Stimulating Hormone (TSH) 0.39 L 0.55-4.78 uIU/mL Urine Color Yellow Yellow Urine Clarity Turbid H Clear Urine pH 5.5 5.0-9.0 Urine Specific [place] 1.026 1.001-1.035 Urine Protein 1+ H Negative Urine Ketones Negative Negative Urine Blood 3+ H Negative /uL Urine Nitrite Negative Negative Urine Bilirubin Negative Negative Urine Urobilinogen Normal Negative mg/dL Urine Leukocyte Esterase Negative Negative /uL Urine RBC 1 0 - 4 /hpf Urine Microscopic WBC 1 0-5 /HPF Urine Squamous Epithelial Cells Few <5 /hpf Urine Bacteria None seen None Seen /hpf Urine Glucose Normal Normal mg/dL Urine Opiates Screen Neg NEGATIVE Urine Fentanyl Screen Pos NEGATIVE Urine Barbiturates Screen Neg NEGATIVE Urine Phencyclidine Screen Neg NEGATIVE Urine Amphetamines Screen Neg NEGATIVE Urine Benzodiazepines Screen Neg NEGATIVE Urine Cocaine Screen Neg NEGATIVE Urine Cannabinoids Screen Pos NEGATIVE Influenza Type A Antigen Negative Negative Influenza Type B Antigen Negative Negative SARS-CoV-2 Antigen (Rapid) Negative NEGATIVE Troponin I High Sensitivity 25 </=34 ng/L B-Type Natriuretic Peptide 25.60 0-100 pg/mL Lipase 47 12-53 U/L Plasma/Serum Blood Alcohol 3.9 <10 mg/dL Microbiology Date/Time Source Procedure Growth Status 12/27/24 07:56 Nose MRSA Screen - Final Complete 12/26/24 20:49 Blood Blood Culture - Preliminary NO GROWTH AFTER 24 HOURS OF INCUBATION. Resulted Assessment Altered mental status/metabolic encephalopathy, secondary to dehydration, hypernatremia, and possible sepsis Sepsis Lactic acidosis Pressure sore Recent stroke with left hemianopsia, left hemiparesis Dementia/Alzheimer disease Plan/Recommendation Monitoring Supportive treatment ÁNGEL care Oxygen Rehydration IV antibiotics Plavix 75 mg daily Lipitor 40 mg daily Aricept 10 mg daily Memantine 10 mg b.i.d. DVT prophylaxis/Lovenox She was prophylaxis/Protonix Wound care More recommendation per clinical course Prognosis: Poor This medical document was created using an electronic medical record system with [employer] dictation system. Although this document has been carefully reviewed, there may still be some phonetic and typographical errors. These areas are purely typographical due to imperfections of the software programs, and do not reflect any compromise in the patient's medical care. Plan discussed with: Other DAVID CAMPBELL MD December 28, 2024 09:11
[2024-12-28] MEDS: MAGNESIUM SULFATE 1GM/100ML 100 ML IV SCH (10:32)
--- NOTE | 2024-12-28 11:46 | DVH ---
PROCEDURE: MRI BRAIN HEAD WO CONTRAST INDICATION: ALOC EXAM DATE: 12/28/2024 10:54 AM COMPARISON: None TECHNIQUE: MRI of the brain without intravenous contrast. Limited exam. Only diffusion-weighted rodney ges, sagittal T1 and axial T2 weighted images were obtained. FINDINGS: Limited by significant motion. Restricted diffusion in the right cerebral hemisphere with associated T2 signal abnormality similar t o prior exam consistent with a subacute right MCA infarct. There is no definite evidence of acute intracranial hemorrhage, extra-axial collection, mass effect, midline shift, herniation or hydrocephalus. The major vascular flow voids are present. Bilateral mastoid effusions. The surrounding soft tissues and osseous structures are unremarkable. IMPRESSION: 1. Limited exam. Restricted diffusion and T2 signal abnormality in the right cerebral hemisphere yonas lar to prior exam consistent with evolving right MCA infarct. No definite new ischemia identified. Cl inical correlation and continued follow-up is recommended. HS:Y
[2024-12-28] MEDS: PIPERACILLIN-TAZOB 3.375GM 100 ML IV SCH (14:28)
--- NOTE | 2024-12-28 15:23 | ECG ---
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
--- NOTE | 2024-12-28 15:23 | ECG ---
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
--- NOTE | 2024-12-28 15:23 | ECG ---
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
[2024-12-28] MEDS: VANCOMYCIN 750MG KIT 100 ML IV SCH (20:47)
--- NOTE | 2024-12-28 22:43 | DVHPN2 ---
Subjective The patient is seen and examined at bedside. The patient is alert but still altered mental status. The patient was upgraded to ÁNGEL yesterday due to her hypotension and her altered mental status. Reviewed: Care Plan, H&P, Labs, Medications, Previous Orders, Radiology Changes from previous H/P or p: No Changes Objective Vitals Vital Signs Date Time Temp Pulse Resp B/P (MAP) Pulse Ox O2 Delivery O2 Flow Rate FiO2 12/28/24 17:35 99.3 85 18 135/70 (91) 98 99.3 12/28/24 08:00 Simple Mask* 8 60 Intake/Output Intake and Output 12/28/24 07:00 Intake Total 370 ml Output Total 1050 ml Balance -680 ml Intake Oral 0 ml IV Total 370 ml Output Urine Total 1050 ml Stool Total 0 ml General Appearance: Alert HEENT: Atraumatic, PERRLA, EOMI, Mucous membr. moist/pink Lungs: Clear to auscultation, Normal air movement Cardiovascular: Regular rate, Normal S1, Normal S2, No murmurs, Gallops, Rubs Neuro: Other (Left-sided weakness) Psych/Mental Status: Mental status NL Medications Current Medications Medications Dose Ordered Sig/Tash Route Start Time Stop Time Status Last Admin Dose Admin Acetaminophen 650 mg Q6HP PRN PO 12/26/24 22:45 Morphine Sulfate 2 mg Q4HPRN PRN IV 12/26/24 22:45 Enoxaparin Sodium 40 mg DAILY SC 12/27/24 10:00 UNV Nitroglycerin 0.4 mg Q5MINP PRN SL 12/26/24 22:45 Morphine Sulfate 2 mg Q30M PRN IV 12/26/24 22:45 Vancomycin HCl 0 ml @ 0 mls/hr UD IV 12/26/24 23:00 Diagnostic Test (Pha) 1 strip IQ4HR 12/27/24 00:00 12/28/24 20:00 1 STRIP Insulin Human Regular IQ4HR SC 12/27/24 00:00 12/28/24 20:55 6 UNITS Dextrose 50 ml UD PRN IV 12/26/24 23:15 Enoxaparin Sodium 30 mg DAILY SC 12/27/24 10:00 12/28/24 10:33 30 MG Clopidogrel Bisulfate 75 mg DAILY PO 12/27/24 10:00 Pantoprazole Sodium 40 mg DAILY IV 12/27/24 10:00 12/28/24 10:32 40 MG Piperacillin Sod/ Tazobactam Sod 100 ml @ 25 mls/hr Q8HR IV 12/28/24 14:00 12/28/24 14:28 25 MLS/HR Norepinephrine Bitartrate 250 ml @ 1.875 mls/ hr Q24H IV 12/28/24 06:45 Donepezil HCl 10 mg HS PO 12/28/24 22:00 Memantine 10 mg Q12HR PO 12/28/24 22:00 Vancomycin HCl 100 ml @ 100 mls/hr Q12H IV 12/28/24 18:00 12/28/24 20:47 100 MLS/HR Laboratory Results Laboratory Tests 12/28/24 04:50 Chemistry Test 12/28/24 04:50 Calcium Level 9.4 mg/dL (8.7-10.4) Magnesium Level 1.5 mg/dL (1.6-2.6) L Urinalysis Test 12/26/24 21:30 Urine Color Yellow (Yellow) Urine Clarity Turbid (Clear) H Urine pH 5.5 (5.0-9.0) Urine Specific [place] 1.026 (1.001-1.035) Urine Protein 1+ (Negative) H Urine Ketones Negative (Negative) Urine Blood 3+ /uL (Negative) H Urine Nitrite Negative (Negative) Urine Bilirubin Negative (Negative) Urine Urobilinogen Normal mg/dL (Negative) Urine Leukocyte Esterase Negative /uL (Negative) Urine RBC 1 /hpf (0 - 4) Urine Microscopic WBC 1 /HPF (0-5) Urine Squamous Epithelial Cells Few /hpf (<5) Urine Bacteria None seen /hpf (None Seen) Urine Glucose Normal mg/dL (Normal) Blood Gas Results Test 12/28/24 06:10 Arterial Blood pH 7.497 (7.350-7.450) FiO2 % 50.0 Microbiology Microbiology Date/Time Source Procedure Growth Status 12/27/24 08:00 Sacrum Aerobic Culture - Preliminary Resulted 12/26/24 21:30 Voided Urine Urine Culture - Preliminary Resulted 12/26/24 20:49 Blood Blood Culture - Preliminary NO GROWTH AFTER 48 HOURS OF INCUBATION. Resulted Labs and/or images reviewed: Labs reviewed by me Assessment/Plan Assessment/Plan #Envolving right MCA CVA #Septic shock due to sacral wound infection - resolving-: patient needed epinephrine prior admission #Acute metabolic encephalopathy due to sepsis and ischemic stroke #Subacute ischemic stroke #Acute on Chronic hypoxic respiratory failure #End-stage Alzheimer dementia #Type 2 diabetes mellitus, hemoglobin A1c 7.7 on 11/16/2024 #PHILLIP due to [facility] #Mild Hyponatremia #Tranasaminits #Diabetes #History of CAD s/p stent placement #Hypertension #Asthma Discussed with patient's daughter regarding to her altered mental status in the MRI showed involving right MC a CVA which is a large ischemic stroke. The daughter expressed the wish to bring mom home for hospice. I will consulted hospice. Continuing current management. Continuing with sliding scale insulin. Continuing with nebulizer Continuing with IV antibiotic Prognosis guarded This medical document was created using an electronic medical record system with [employer] computerized dictation system. Although this document has been carefully reviewed, there may still be some phonetic and typographical errors. These areas are purely typographical due to imperfections of the software programs, and do not reflect any compromise in the patient's medical care. Plan discussed with: Daughter My Orders Orders - LEIGH JOHN MD Procedure Category Date Status Time Comprehensive LAB 12/29/24 Verified Metabolic Panel 04:00 Complete Blood Count LAB 12/29/24 Verified 04:00 Magnesium LAB 12/29/24 Verified 04:00 * Swallow Request ST 12/28/24 Transmitted 12:25 Transfer Orders XFER 12/28/24 Transmitted 13:26 * Clay Preparation Supervisor CONS 12/28/24 Transmitted Consult Code Status CODE 12/28/24 Transmitted 14:05 Pureed DIET 12/28/24 Transmitted Dinner Notify Provider NOTICE 12/28/24 Transmitted Malnutrition 15:57 Nutritional NOURISH 12/28/24 Transmitted Supplements 15:57 Increase Calorie NOURISH 12/28/24 Transmitted Intake 15:57 Dietary NOTICE 12/28/24 Transmitted Recommendations 15:57 Date of Service: December 28, 2024 Billing Provider: LEIGH JOHN MD Common Visit Codes: [id number] INP/OBS CARE(HIGH) LEIGH JOHN MD December 28, 2024 22:43
[2024-12-28] MEDS: MEMANTINE HCL 5 MG TAB PO SCH (23:33)
[2024-12-28] MEDS: DONEPEZIL HYDROCHLORIDE 5 MG TAB PO SCH (23:34)
[2024-12-29] VITALS (7 sets, daily range): BP systolic 150–164; BP diastolic 69–85; PULSE 89–101; RESP 16–18; TEMP 98.3–100.6; O2SAT 95–97
[2024-12-29 07:22] LABS: Basophils # (auto) 0.1 10 ^3/uL (0-0.2); Eosinophils # (auto) 0.1 10 ^3/uL (0-0.8); Eosinophils % (auto) 0.4 % (0.0-7.0); Hemoglobin 12.7 g/dL (12.2-16.2); Monocytes # (auto) 1.3 10 ^3/uL (0-1.3)
[2024-12-29 07:23] LABS: Basophils % (auto) 0.8 % (0.0-2.0); Hematocrit 38.7 % (36.0-46.0); Lymphocytes # (auto) 2.2 10 ^3/uL (0.4-5.4); Lymphocytes % (auto) 14.3 % (10.0-50.0); Mean Corpuscular Hgb Conc. 32.9 g/dL (32.0-36.0); Mean Corpuscular Volume 88.1 fL (80.0-100.0); Neutrophils % (auto) 76.5 % (37.0-80.0); Platelet Count (auto) 468 10^3/uL (140-450); Red Blood Cells 4.39 10^6/uL (4.0-5.20); Red Cell Distribution Width 13.9 % (11.8-14.3); White Blood Cell 15.7 10^3/uL (4.4-10.8)
[2024-12-29 07:40] LABS: Alkaline Phosphatase 83 U/L (46-116); Anion Gap 11 (5-15); BUN/Creatinine Ratio 38.3 (10.0-20.0); Calcium 9.2 mg/dL (8.7-10.4); Carbon Dioxide 25 mmol/L (20-31); Magnesium 1.6 mg/dL (1.6-2.6); Potassium 3.6 mmol/L (3.5-5.1)
[2024-12-29 07:41] LABS: Albumin 3.5 g/dL (3.2-4.8); Bilirubin, Total 0.4 mg/dL (0.2-1.0)
[2024-12-29 07:45] LABS: Alanine Aminotransferase 100 U/L (7-40); Aspartate Aminotransferase 152 U/L (13-40); Blood Urea Nitrogen 23 mg/dL (9-23); Chloride 113 mmol/L (98-107); Glucose 195 mg/dL (74-106); Sodium 149 mmol/L (136-145)
--- NOTE | 2024-12-29 10:00 | DVHDS2 ---
Discharge Summary Date of Admission December 26, 2024 at 22:35 Date of Discharge: December 29, 2024 Labs/Diagnostic Data: Laboratory Results Test 12/29/24 09:05 12/29/24 07:00 12/28/24 06:10 12/28/24 04:50 POC Glucose 334 mg/dl (70-106) White Blood Count 15.7 10^3/uL (4.4-10.8) Red Blood Count 4.39 10^6/uL (4.0-5.20) Hemoglobin 12.7 g/dL (12.2-16.2) Hematocrit 38.7 % (36.0-46.0) Mean Corpuscular Volume 88.1 fL (80.0-100.0) Mean Corpuscular Hemoglobin 29.0 pg (28.0-32.0) Mean Corpuscular Hemoglobin Concent 32.9 g/dL (32.0-36.0) Red Cell Distribution Width 13.9 % (11.8-14.3) Platelet Count 468 10^3/uL (140-450) Mean Platelet Volume 8.1 fL (6.9-10.8) Neutrophils (%) (Auto) 76.5 % (37.0-80.0) Lymphocytes (%) (Auto) 14.3 % (10.0-50.0) Monocytes (%) (Auto) 8.0 % (0.0-12.0) Eosinophils (%) (Auto) 0.4 % (0.0-7.0) Basophils (%) (Auto) 0.8 % (0.0-2.0) Neutrophils # (Auto) 12.0 10 ^3/uL (1.6-8.6) Lymphocytes # (Auto) 2.2 10 ^3/uL (0.4-5.4) Monocytes # (Auto) 1.3 10 ^3/uL (0-1.3) Eosinophils # (Auto) 0.1 10 ^3/uL (0-0.8) Basophils # (Auto) 0.1 10 ^3/uL (0-0.2) Nucleated Red Blood Cells 0.0 % Sodium Level 149 mmol/L (136-145) Potassium Level 3.6 mmol/L (3.5-5.1) Chloride Level 113 mmol/L (98-107) Carbon Dioxide Level 25 mmol/L (20-31) Anion Gap 11 (5-15) Blood Urea Nitrogen 23 mg/dL (9-23) Creatinine 0.60 mg/dL (0.550-1.02) Glomerular Filtration Rate Calc 95 mL/min (>90) BUN/Creatinine Ratio 38.3 (10.0-20.0) Serum Glucose 195 mg/dL (74-106) Calcium Level 9.2 mg/dL (8.7-10.4) Magnesium Level 1.6 mg/dL (1.6-2.6) Total Bilirubin 0.4 mg/dL (0.2-1.0) Aspartate Amino Transferase (AST) 152 U/L (13-40) Alanine Aminotransferase (ALT) 100 U/L (7-40) Alkaline Phosphatase 83 U/L (46-116) Total Protein 6.0 g/dL (5.7-8.2) Albumin 3.5 g/dL (3.2-4.8) Blood Gas Specimen Type Arterial Blood Gas Sample Site Left radial Blood Gas Patient Temperature 37.0 Arterial Blood Date Drawn [id number] Arterial Blood pH 7.497 (7.350-7.450) Arterial Blood Partial Pressure CO2 32.0 mmHg (32.0-45.0) Arterial Blood Partial Pressure O2 90.7 mmHg (83.0-108.0) Arterial Blood HCO3 24.2 mmol/L (21.0-28.0) Arterial Blood Oxygen Saturation 96.9 % (94.0-98.0) Arterial Blood Base Excess 1.7 mmol/L (-2.0-3.0) Arterial Blood Oxyhemoglobin 96.2 % (94.0-98.0) Arterial Blood Carboxyhemoglobin 0.3 % (0.5-1.5) Arterial Blood Methemoglobin 0.4 % (0.0-1.5) Supa Test Yes Blood Gas Total Hemoglobin 13.40 g/dL (12.0-16.0) Blood Gas Liter Flow 8.00 Blood Gas Modality Mask - simple FiO2 % 50.0 Random Vancomycin Level 4.3 ug/mL (5-10) Test 12/27/24 11:24 12/27/24 09:11 12/26/24 21:30 12/26/24 21:24 Lactic Acid Level 1.3 mmol/L (0.4-2.0) Prothrombin Time 14.0 sec (9.3-11.8) Prothrombin Time INR 1.36 (0.9-1.15) Activated Partial Thromboplast Time 25.6 SEC (24.5-34.5) Phosphorus Level 2.7 mg/dL (2.4-5.1) Ammonia < 10 umol/L (11-32) Thyroid Stimulating Hormone (TSH) 0.39 uIU/mL (0.55-4.78) Urine Color Yellow (Yellow) Urine Clarity Turbid (Clear) Urine pH 5.5 (5.0-9.0) Urine Specific Oriental 1.026 (1.001-1.035) Urine Protein 1+ (Negative) Urine Ketones Negative (Negative) Urine Blood 3+ /uL (Negative) Urine Nitrite Negative (Negative) Urine Bilirubin Negative (Negative) Urine Urobilinogen Normal mg/dL (Negative) Urine Leukocyte Esterase Negative /uL (Negative) Urine RBC 1 /hpf (0 - 4) Urine Microscopic WBC 1 /HPF (0-5) Urine Squamous Epithelial Cells Few /hpf (<5) Urine Bacteria None seen /hpf (None Seen) Urine Glucose Normal mg/dL (Normal) Urine Opiates Screen Neg (NEGATIVE) Urine Fentanyl Screen Pos (NEGATIVE) Urine Barbiturates Screen Neg (NEGATIVE) Urine Phencyclidine Screen Neg (NEGATIVE) Urine Amphetamines Screen Neg (NEGATIVE) Urine Benzodiazepines Screen Neg (NEGATIVE) Urine Cocaine Screen Neg (NEGATIVE) Urine Cannabinoids Screen Pos (NEGATIVE) Influenza Type A Antigen Negative (Negative) Influenza Type B Antigen Negative (Negative) SARS-CoV-2 Antigen (Rapid) Negative (NEGATIVE) Test 12/26/24 20:49 Troponin I High Sensitivity 25 ng/L (</=34) B-Type Natriuretic Peptide 25.60 pg/mL (0-100) Lipase 47 U/L (12-53) Plasma/Serum Blood Alcohol 3.9 mg/dL (<10) Other Laboratory Tests 12/29/24 07:00 Brief Hx & Hospital Course: SEE DICTATED NOTE Condition at Discharge: Poor Final Diagnosis/Problems List CVA Discharge Disposition: Hospice - Home Discharge Instruct/Medications Diet: Consistent carbohydrate, Cardiac 2g Na,low cholest Diet comment: PUREED Activity: No Restrictions, As Tolerated Follow Up/Referral: FU WITH HOSPICE Medications: PER HOSPICE LEAVE [facility] IN Discharge Statement: "Patient was advised to return to the ER or call 911 if any headaches, dizziness, shortness of breath, chest pain, abdominal pain, bleeding, fevers, or worsening of medical condition. Patient was counseled about treatment plan, medications, possible side effects, patientverbalized understanding. All questions were answered to the best of my ability. This discharge took greater then 30 minutes in planning, reviewing documentation, counseling the patient, and discussing with other team members." ASSESSMENT ASSESSMENT Assessment CVA Date of Service: December 29, 2024 Billing Provider: SKIP SANCHEZ MD Common Visit Codes: 61766-GTH/OBS DISCH DAY >30min SKIP SANCHEZ MD December 29, 2024 10:00
--- NOTE | 2024-12-29 10:24 | DVHDS ---
DATE OF DISCHARGE: 12/29/2024 HISTORY OF PRESENT ILLNESS: The patient is a 74-year-old lady who was admitted with hypotension and altered level of consciousness. The patient has a history of diabetes, hypertension, coronary artery disease, recent large stroke, and Alzheimer's dementia. HOSPITAL COURSE: The patient had a CT of the head that showed large right middle cerebral artery CVA. Chest x-ray showed no acute disease. The patient had a decubitus ulcer. White count was elevated at 20,000 that improved to 15,000 at the time of discharge. The patient was hyponatremic. Her UA was negative. The patient will now be discharged under hospice with medication as per hospice. FINAL DIAGNOSES: Therefore, * Recent acute CVA. * Sepsis with likely infection from decubitus ulcer. * Hypertension. * Diabetes mellitus. * Dementia. * History of coronary artery disease. * DNR status/hospice care. * Hyponatremia. Time spent in discharge planning and review of plan with the patient, nursing and family was 41 minutes. MD KEL Paige/[facility] TID: [id number] RECEIPT: [id number]
[2024-12-29] MEDS: METOPROLOL TARTRATE 25 MG TAB PO SCH (11:29)
== END 2024-12-29 12:50 | disposition hospice, home (50) | DRG 871 ==
LOC: EDBD 20:09 → ER 20:09 → OVERFLOW 22:35 → TELE-EAST 22:58 → DOU IN ICU 12-27 18:52 → TELE-WESTW 12-28 17:33
PROVIDERS: ADMIT Internal Medicine; ATTEND Internal Medicine
DX: A41.9 Sepsis, unspecified organism (principal); G93.41 Metabolic encephalopathy; I63.9 Cerebral infarction, unspecified; J96.21 Acute and chronic respiratory failure with hypoxia; N17.0 Acute kidney failure with tubular necrosis; R65.21 Severe sepsis with septic shock; E87.1 Hypo-osmolality and hyponatremia; E87.20 Acidosis, unspecified; G81.94 Hemiplegia, unspecified affecting left nondominant side; E87.0 Hyperosmolality and hypernatremia; E11.9 Type 2 diabetes mellitus without complications; Z51.5 Encounter for palliative care; Z20.822 Contact with and (suspected) exposure to COVID-19; Z66 Do not resuscitate; R74.01 Elevation of levels of liver transaminase levels; I10 Essential (primary) hypertension; J45.909 Unspecified asthma, uncomplicated; G30.9 Alzheimer's disease, unspecified; F02.C0 Dementia in other diseases classified elsewhere, severe, without behavioral disturbance, psychotic disturbance, mood disturbance, and anxiety; I25.10 Atherosclerotic heart disease of native coronary artery without angina pectoris; L89.159 Pressure ulcer of sacral region, unspecified stage; Z80.8 Family history of malignant neoplasm of other organs or systems; Z79.899 Other long term (current) drug therapy; Z86.73 Personal history of transient ischemic attack (TIA), and cerebral infarction without residual deficits; Z95.5 Presence of coronary angioplasty implant and graft; Z88.6 Allergy status to analgesic agent; Z88.2 Allergy status to sulfonamides; Z79.84 Long term (current) use of oral hypoglycemic drugs; Z82.49 Family history of ischemic heart disease and other diseases of the circulatory system; Z90.710 Acquired absence of both cervix and uterus; Z98.891 History of uterine scar from previous surgery; L89.320 Pressure ulcer of left buttock, unstageable; L89.310 Pressure ulcer of right buttock, unstageable
CPT/HCPCS: 36415; 36600; 70450; 70551; 71045; 74176; 80048; 80053; 80202; 80307; 80320; 81001; 82140; 82565; 82805; 82962; 83605; 83690; 83735; 83880; 84100; 84443; 84484; 85025; 85610; 85730; 87040; 87070; 87081; 87086; 87426; 87804; 92507; 92610; 93005; 96365; G0378; J1815; J2470; J2543